=== PATIENT | female | born 1985 | race Caucasian/White ===

== ENCOUNTER 2018-12-19 21:46 | Emergency (ER) | payer MEDICAID, SELFPAY ==
[2018-12-19 21:47] VITALS: BP 131/75; PULSE 111; RESP 16; TEMP 36.4; O2SAT 98; BMI 26.4
[2018-12-19 21:55] VITALS: RESP 16
--- NOTE | 2018-12-19 22:21 | ED.VISSUMM ---
- ER Visit Summary Date of Service: 12/19/18 Chief Complaint: Abdominal pain, nausea, vomiting History of Present Illness: The patient is a 33 F who presents with abdominal pain, nausea, and vomiting is been getting worse over the past 3 days. Patient states she is unable to keep anything down. Patient states she has been having fevers up to 100.2 at home. Patient describes her pain as aching. Patient states her pain is over the upper abdomen. Patient denies any hematemesis or coffee-ground emesis. Patient denies any diarrhea, melena, or hematochezia. Physical Examination: Vital signs are stable except for mild tachycardia of 111. Patient is afebrile. Patient is in no acute distress. Oral mucosa is pink and moist. Neck is supple. Trachea is midline. There is no JVD noted. Heart was regular rate and rhythm. Lungs are clear and equal bilateral. Abdomen is soft. Bowel sounds are normal. There is diffuse tenderness. There is no rebound or guarding noted. Cranial nerves II through XII are intact. There are no focal motor or sensory deficits noted. Test Results: CBC, comprehensive metabolic profile, urinalysis, and serum hCG were obtained and were negative. Emergency Department Course and Treatment: Patient was given IV fluids and Zofran here. Patient was given a prescription for Zofran. Patient was instructed to start with small frequent fluids. Patient was instructed to advance her diet as tolerated. Patient was instructed to follow-up with her primary care physician in 5-7 days. Patient was instructed to take Tylenol or ibuprofen as needed for any fevers. Patient understood and was agreeable with the plan. All questions were answered. Disposition: Discharge home Impression: Nausea and vomiting This note was generated with [employer] dictation software. It may contain incorrect words, spelling, and punctuation that were not noted in review of the chart prior to signing ED Disposition - Plan for ED Patient: Disposition: Home or Assisted Living Diagnosis: Nausea and vomiting Instructions: ED Nausea Vomiting Prescriptions: Ondansetron [Zofran Odt] 4 mg PO Q8H PRN PRN #10 tab PRN Reason: Nausea Referrals: Care Physician,No Primary [Primary Care Provider] - [facility] [NON-STAFF] - 5-7 Days
[2018-12-19] MEDS: Ondansetron 4 MG/2 ML Vial IV (22:37)
[2018-12-19] MEDS: 0.9% Normal Saline 1,000 ML 1000 ML IV (22:37)
[2018-12-19] MEDS: Morphine 4 MG/ML Syringe IV (22:39)
[2018-12-19 22:53] LABS: Bacteria 0 SEEN /hpf (None Seen); Red Blood Cells-Urine 0 SEEN /hpf (0-5)
[2018-12-19 23:02] LABS: Absolute Lymphocyte Count 0.54 X10^3/ul (0.83-4.51); Absolute Neutrophil Count 7.3 X10^3/uL (2.0-7.7); Basophil# 0.02 X10^3/uL; Basophil% 0.2 % (0-1); Eosinophil# 0.19 X10^3/uL; Eosinophils% 2.2 % (0-5); Hematocrit 37.9 % (37-47); Hemoglobin 12.6 g/dl (12.0-15.0); Lymphocyte # 0.54 X10^3/ul (4.0); Lymphocyte % 6.2 % (19-41); Mean Corp Hgb Conc 33.2 g/gl (32-36); Mean Corpuscular Hgb 28.3 pg (27.0-32.0); Monocyte# 0.66 X10^3/uL; Monocyte% 7.6 % (0-10); Neutrophil # 7.27 X10^3/uL (2.7-7.7); Neutrophil % 83.3 % (47-70); Platelet Count 371 K/mm3 (150-450); RBC Distribution Width CV 13.9 % (11.6-14.6); RBC Distribution Width SD 42.9 fl (35.1-43.9); Red Blood Count 4.46 M/mm3 (4.2-5.4); White Blood Count 8.7 K/mm3 (4.4-11.0)
[2018-12-19 23:03] LABS: Color, Urine Yellow (Yellow); Glucose, Dipstick Normal (Normal); Ketone-Dipstick Negative (Negative); Leukocyte Esterase-Dipstick 100 /ul (Negative); Nitrite-Dipstick Negative (Negative); Occult Blood-Urine 10 /ul (Negative); Protein-Dipstick Negative (Negative); Urine Clarity Sl. Cloudy (Clear); Urine Urobilinogen Normal (Normal)
[2018-12-19 23:03] LABS: Differential Indicated SCAN CRITERIA MET; POSITIVE COUNT NO; POSITIVE DIFFERENTIAL YES; POSITIVE MORPHOLOGY NO
[2018-12-19 23:12] LABS: Internal QC Validated? YES +Cl - CLEAR BKGD; Pregnancy, Serum, hCG Quali. NEGATIVE Negative
[2018-12-19 23:18] LABS: Urine Bilirubin Dipstick 1 mg/dL (Negative)
[2018-12-19 23:18] LABS: ALB/GLOB Ratio 0.8 RATIO (0.9-2.4); AST(SGOT) 12 U/L (15-37); Alanine Aminotransfer ALT/SGPT 17 U/L (13-56); Albumin, Serum 3.4 g/dL (3.2-5.0); Alkaline Phosphatase 78 U/L (45-117); Anion Gap 6 (5-15); BUN 7 mg/dL (7-18); Calcium,Total 8.8 mg/dL (8.5-10.1); Chloride 104 mmol/L (98-107); EST Glomerular Filtration Rate 102 mL/min (>60); Est Glom Filt Rate - Afr Amer 123 mL/min (>60); Estimated Creatinine Clearance 107.01 ml/min; Globulin 4.1 g/dL (2.2-4.2); Glucose 93 mg/dL (74-106); Protein, Total 7.5 g/dL (6.4-8.2); Sodium Level 134 mmol/L (136-145)
[2018-12-19 23:19] LABS: White Blood Cells 5-10 SEEN /hpf (0-5)
[2018-12-19 23:20] LABS: Differential Comment SCANNED
[2018-12-19 23:20] LABS: Mucous, Urine 1+ /hpf (<or=2+); Squamous Epithelial Cells - UA 0-5 SEEN /hpf (5-10); Transitional Epithelial - Ur 0-5 SEEN /hpf (0-5)
[2018-12-19 23:54] VITALS: PULSE 90; RESP 16
== END 2018-12-19 23:54 | disposition home or self-care (01) ==
PROVIDERS: Emergency Provider Emergency Medicine
DX: R11.2 Nausea with vomiting, unspecified (principal); R10.11 Right upper quadrant pain; R10.12 Left upper quadrant pain; Z72.0 Tobacco use
CPT/HCPCS: 80053; 81001; 84703; 85025; 96361; 96374; 96375; 99283; J7030; J2405

== ENCOUNTER 2018-12-31 17:38 | Emergency (ER) | payer MEDICAID, SELFPAY ==
[2018-12-31 17:39] VITALS: BP 117/76; PULSE 105; RESP 14; TEMP 36.7; O2SAT 99; BMI 29.7
--- NOTE | 2018-12-31 18:23 | ED.DCSUM_ITS ---
History of Present Illness Chief Complaint: Back Informant: Patient, Significant Other Onset: Yesterday Context: Gradual Onset - after lots of walking Timing: Continuous Quality: aching Location: right low back. radiates down RLE to foot. Current Severity: Moderate Maximum Severity: Moderate Worsened by: walking Relieved by: rest Associated Symptoms: numbness down RLE to foot Narrative: Denies any bowel or bladder dysfunction, no saddle anesthesias. No recent injury, just lots of repetitive movements and walking. She is new to the area according to her significant other. She has had this discomfort chronically for over a year in her right low back down her right lower extremity, same symptoms that are currently worse for the last couple days. - Past Medical History (1) Sciatica, right side Status: Chronic Past Medical History - Allergies and Home Meds Allergies/Adverse Reactions: Allergies ibuprofen Allergy (Verified 12/31/18 17:43) Anaphylaxis NSAIDS (Non-Steroidal Anti-Inflamma Allergy (Verified 12/19/18 21:50) Anaphylaxis Penicillins [PCN] Allergy (Verified 12/19/18 21:50) Anaphylaxis Primary Care Physician: Care Physician,No Primary [Primary Care Provider] - Smoking Status: Current every day smoker Review of Systems General: Denies: Chills, Fever Gastrointestinal: Denies: Abdominal pain, Nausea, Vomiting, Diarrhea Genitourinary: Reports: - - Last normal menstrual cycle last month, chronically irregular. Denies: Dysuria, Hematuria, Frequency Musculoskeletal: Reports: Back pain, Extremity Pain. Denies: Neck pain Skin: Denies: Rash, Wounds Neurological: Reports: Parasthesia. Denies: Headache, Weakness Physical Exam Vital Signs/Narrative: Vital Signs Temp Pulse Resp BP Pulse Ox 12/31/18 17:39 98.0 F 105 H 14 117/76 99 Inital Vital Signs reviewed: Yes General: Well nourished, Well developed, No Acute Distress Head: Normocephalic, Atraumatic Eyes: Perrl, EOMI ENT: Moist mucous membranes, No rhinorrhea Neck: Supple, Nontender Respiratory: No distress Abdomen: Soft, Nontender, Nondistended, Normal bowel sounds Back: Normal Inspection. Negative for: Nontender - Tender from right sciatic notch all the way into right sacroiliac joint area. No crepitance, asymmetry, rash., CVA tenderness, Spinal tenderness Extremities: Nontender, No edema Skin: Normal color, No rash, No Trauma Neurological: Alert, Oriented x3, Cranial nerves II-XII grossly intact, Normal Strength, Normal Sensation, Normal DTR - Downgoing toes, no clonus bilaterally. Negative cross leg straight leg raise while lying. Positive ipsilateral right- sided straight leg raise. Psychological: Normal affect, Normal Mood Diagnostic/Tx/Re-eval - Medical Decision Making Patient states she is allergic to all NSAIDs. She is well-appearing does not have any symptoms of cauda equina syndrome. As I discussed with her, we do not treat chronic pain with narcotics. She is given an injection of Norflex and advised to follow-up so that she can have MRI at some point for this chronic pain that she has never been imaged for. ED Disposition - Plan for ED Patient: Disposition: Home or Assisted Living Diagnosis: Acute exacerbation of chronic low back pain, Sciatica, right side Instructions: ED Sciatica Referrals: Jaimie Mckeon [NON-STAFF] -
[2018-12-31] MEDS: Orphenadrine 60 MG/2 ML Ampul IM (18:45)
[2018-12-31 18:46] VITALS: BP 120/81; PULSE 73; RESP 15; O2SAT 98
== END 2018-12-31 18:47 | disposition home or self-care (01) ==
LOC: ED 18:30
PROVIDERS: Emergency Provider Emergency Medicine
DX: M54.41 Lumbago with sciatica, right side (principal); G89.29 Other chronic pain; F17.200 Nicotine dependence, unspecified, uncomplicated
CPT/HCPCS: 96372; 99282

== ENCOUNTER 2019-01-04 18:19 | Emergency (ER) | payer MEDICAID, SELFPAY ==
[2019-01-04 18:19] VITALS: BP 118/78; PULSE 77; RESP 16; TEMP 37.2; O2SAT 100; BMI 28.3
--- NOTE | 2019-01-04 18:39 | ED.DCSUM_ITS ---
- ER Visit Summary Date of Service: 01/04/19 Chief Complaint: Back pain History of Present Illness: The patient is a 33 F presenting with back pain. She states she has had pain in her right low back that radiates to her right leg for the past year. She was seen by [facility] yesterday. She was scheduled to start physical therapy on . She was told yesterday that if her pain worsened she should return to the ED. She states she woke up this morning with worsening pain. She currently is homeless and is sleeping on an air mattress. She denies bowel or bladder incontinence. Denies weakness. Denies fever. She states she felt like her right thigh was swollen. Denies chest pain or shortness of breath. Denies other complaints. Physical Examination: Vitals are stable. Patient is afebrile. Alert no acute distress. HEENT exam is unremarkable. Neck is supple. Lungs are clear and equal bilaterally. Heart is regular rate and rhythm. Abdomen is soft nontender nondistended. Back: Right paraspinal lumbar muscle tenderness. Straight leg raise + at 30 degrees on the right. Extremities are unremarkable. Normal distal pulses. No erythema or warmth. Skin is warm and dry. No focal neurologic deficit. Normal strength and sensation Remainder of exam is unremarkable. Emergency Department Course and Treatment: Patient was given Norflex IM. Venous Doppler right lower extremity shows no evidence of DVT. She is given a prescription for Flexeril. She is allergic to NSAIDs. She is advised to take Tylenol. She is advised to follow up with her primary care physician and physical therapy as scheduled. Advised to return to the ED for worsening complaints. Disposition: Discharged home Impression: Sciatica This note was generated with [employer] dictation software. It may contain incorrect words, spelling, and punctuation that were not noted in review of the chart prior to signing ED Disposition - Plan for ED Patient: Instructions: ED Sciatica Prescriptions: Cyclobenzaprine [Flexeril] 10 mg PO TID PRN #20 tablet PRN Reason: Muscle Spasm Referrals: Jaimie Mckeon [NON-STAFF] -
--- NOTE | 2019-01-04 18:41 | US_ITS ---
STUDY: VENOUS DOPPLER ULTRASOUND - RIGHT LOWER EXTREMITY REASON FOR EXAM: Female, 33 years old. Right hip swelling and pain that radiates down her leg. TECHNIQUE: Ultrasound evaluation of the deep vein system to include sims-scale imaging and compression was performed. Sims-scale imaging and Doppler sonographic evaluation, including duplex spectral analysis and qualitative color flow sonography, was performed. COMPARISON: None. FINDINGS: Common Femoral Vein: Normal compression, spontaneity and augmentation. Normal color Doppler. Common Femoral Vein/Greater Saphenous Junction: Normal compression. Femoral Proximal: Normal compression. Femoral Middle: Normal compression, spontaneity and augmentation. Normal color Doppler. Femoral Distal: Normal compression. Popliteal Vein: Normal compression, spontaneity and augmentation. Normal color Doppler. Posterior Tibial Vein: Normal compression. Peroneal Vein: Normal compression. There is no demonstrated deep venous thrombosis. US/Venous Duplex Imag/Limited/Uni IMPRESSION: No sonographic evidence for deep venous thrombosis of the right common femoral, superficial femoral or popliteal veins. Electronically Signed: Karen Amaya MD at 19:17 EDT , Service support ,
[2019-01-04] MEDS: Orphenadrine 60 MG/2 ML Ampul IM (19:09)
--- NOTE | 2019-01-04 19:10 | ED.DEP ---
ED Disposition - Plan for ED Patient: Instructions: ED Sciatica Prescriptions: Cyclobenzaprine [Flexeril] 10 mg PO TID PRN #20 tablet PRN Reason: Muscle Spasm Referrals: Jaimie Mckeon [NON-STAFF] -
== END 2019-01-04 19:25 | disposition home or self-care (01) ==
LOC: ED 18:43
PROVIDERS: Emergency Provider Emergency Medicine
DX: M54.41 Lumbago with sciatica, right side (principal); Z72.0 Tobacco use
CPT/HCPCS: 93971; 96372; 99282

== ENCOUNTER 2019-03-24 21:56 | Emergency (ER) | payer SELFPAY ==
[2019-03-24 21:56] VITALS: BP 123/81; PULSE 107; RESP 16; TEMP 37; O2SAT 97; BMI 24.5
--- NOTE | 2019-03-24 22:53 | ED.VIS.EYE ---
History of Present Illness Chief Complaint: Eye Problem Informant: Patient Location: Right Eye Onset: Today Context: Gradual Onset Timing: Continuous Current Severity: Moderate Maximum Severity: Moderate Worsened by: nothing Relieved by: nothing Associated Symptoms - Eyes: Burning, Drainage, Eyelid swelling, Pain, Redness Visual Changes: right: Blurred vision - better when wipes d/c out of eye History of injury: No Visual correction: Glasses - but doesn't have them Narrative: No recent upper respiratory symptoms. Normal left eye. No obvious etiology of this, not exposed to anyone with pinkeye that she knows of. No foreign body sensation. She had a minor headache earlier. Past Medical History - Allergies and Home Meds Allergies/Adverse Reactions: Allergies ibuprofen Allergy (Verified 01/04/19 18:21) Anaphylaxis NSAIDS (Non-Steroidal Anti-Inflamma Allergy (Verified 01/04/19 18:21) Anaphylaxis Penicillins [PCN] Allergy (Verified 01/04/19 18:21) Anaphylaxis Primary Care Physician: Care Physician,No Primary [Primary Care Provider] - Lives: Spouse/ Significant Other Smoking Status: Current every day smoker Review of Systems General: Denies: Chills, Fever Eyes: Reports: Blurred vision - right - When discharge present. Redness, pain. See HPI.. Denies: Diplopia ENT: Denies: Bilateral ear pain, Rhinorrhea, Sore throat Respiratory: Denies: Dyspnea, Cough Gastrointestinal: Denies: Nausea, Vomiting Physical Exam Eyelid: No foreign body, - - Mild erythema and swelling to eyelids, no significant external tenderness. Right Conjunctiva/Sclera: No foreign body, Diffuse focal injection - Both bulbar and palpebral, no chemosis. Small amount of purulent discharge present at medial canthus. Left Conjunctiva/Sclera: Normal inspection Right Cornea: Normal inspection - Grossly, No foreign body Left Cornea: Normal inspection - Grossly Extraocular Motion: Normal exam, No pain, No palsy Vital Signs/Narrative: Vital Signs Temp Pulse Resp BP Pulse Ox 03/24/19 21:56 98.6 F 107 H 16 123/81 H 97 General: Well nourished, Well developed Head: Normocephalic, Atraumatic Skin: Normal color, No rash, No Trauma Neurological: Alert, Oriented x3, Cranial nerves II-XII grossly intact, Normal Strength, Normal Sensation Psychological: Normal affect, Normal Mood Diagnostic/Tx/Re-eval - Medical Decision Making Consistent with conjunctivitis. She prefers drops rather than ointments, understanding that we do not have the drops to give her in the emergency department but we do have ointment. She still would rather have a prescription and fill it in the morning. Advised to follow-up or return to the ER if not improving after couple days or if she has any other significant new symptoms. She is comfortable with that plan. ED Disposition - Plan for ED Patient: Disposition: Home or Assisted Living Diagnosis: Conjunctivitis, right eye Instructions: CONJUNCTIVITIS, Viral, CONJUNCTIVITIS, Bacterial Prescriptions: Sulfacetamide Sodium [Sulf-10] 2 drp OPHTHALMIC (EYE) Q2H 7 Days #1 opth.btl Prescription Printed Referrals: Gamal cMkenna MD [STAFF PHYSICIAN] - 3-5 Days if not improving
[2019-03-24 23:10] VITALS: BP 126/80; PULSE 98; RESP 18; O2SAT 96
== END 2019-03-24 23:22 | disposition home or self-care (01) ==
PROVIDERS: Emergency Provider Emergency Medicine
DX: H10.9 Unspecified conjunctivitis (principal); F17.200 Nicotine dependence, unspecified, uncomplicated
CPT/HCPCS: 99283

== ENCOUNTER 2019-04-01 13:20 | Emergency (ER) | payer SELFPAY ==
[2019-04-01 13:20] VITALS: BP 120/82; PULSE 106; RESP 18; TEMP 36.8; O2SAT 98; BMI 24.5
--- NOTE | 2019-04-01 15:03 | ED.RN ---
PER DR MELENDEZ, OK TO CANCEL SEPSIS SCREENING
--- NOTE | 2019-04-01 15:06 | ED.DCSUM_ITS ---
- ER Visit Summary Date of Service: 04/01/19 Chief Complaint: Eye redness and swelling, left greater than right History of Present Illness: The patient is a 34 F who has the above symptoms. She states is been ongoing for 2 days. She was here last week with symptoms in the right eye and prefer drops rather than ointment so she was discharged with a prescription but it sounds like she did not pick that up. She now has a purulent drainage coming out of the left eye. It is burning. She has blurry vision on that left eye due to the drainage. No history of any injury. She wears no corrective lenses. She has been trying [id number] eyedrops that do not help and she states it just branch when she puts him in the eye. Physical Examination: Bilateral eye exam reveals diffuse injection on the right. The left eye is also injected but also has a purulent drainage coming out of it. Her extraocular motions are intact and normal. Her pupils are equal. There are no other eye abnormality seen Test Results: None performed Emergency Department Course and Treatment: Patient appears to have conjunctivitis, left greater than right. She does have a purulent drainage coming out of the left eye. I will put her on bacitracin ophthalmic. She will follow-up with ophthalmology Treatment Plan: [] Disposition: Discharge Impression: Bilateral conjunctivitis, left greater than right This note was generated with [employer] dictation software. It may contain incorrect words, spelling, and punctuation that were not noted in review of the chart prior to signing ED Disposition - Plan for ED Patient: Referrals: Care Physician,No Primary [Primary Care Provider] -
--- NOTE | 2019-04-01 15:07 | ED.DEP ---
ED Disposition - Plan for ED Patient: Disposition: Home or Assisted Living Instructions: CONJUNCTIVITIS, Bacterial Referrals: Care Physician,No Primary [Primary Care Provider] - Andrae Arroyo MD [STAFF PHYSICIAN] -
[2019-04-01 15:14] VITALS: PULSE 81; RESP 16; O2SAT 100
--- NOTE | 2019-04-01 15:15 | ED.RN ---
THIS NURSE REVIEWED D/C INSTRUCTIONS WITH PT. PT VERBALIZED UNDERSTANDING OF INSTRUCTIONS. PT DENIES FURTHER NEEDS OR QUESTIONS AT THIS TIME. PT AMBULATES FROM ROOM ON OWN WITHOUT ASSISTANCE FROM STAFF
== END 2019-04-01 15:15 | disposition home or self-care (01) ==
LOC: ED 15:08
PROVIDERS: Emergency Provider Emergency Medicine
DX: H10.9 Unspecified conjunctivitis (principal); Z72.0 Tobacco use
CPT/HCPCS: 99283

== ENCOUNTER 2019-04-08 13:04 | Emergency (ER) | payer SELFPAY ==
[2019-04-08 13:08] VITALS: BP 135/80; PULSE 93; RESP 16; TEMP 36.6; O2SAT 98; BMI 25.9
[2019-04-08 13:52] LABS: Internal QC Validated? YES +Cl - CLEAR BKGD
[2019-04-08 13:58] LABS: Pregnancy, Serum, hCG Quali. NEGATIVE Negative
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
--- NOTE | 2019-04-08 14:19 | ED.DEP ---
ED Disposition - Plan for ED Patient: Instructions: CONTUSION, Soft Tissue Referrals: Care Physician,No Primary [Primary Care Provider] - Jj Ponce MD [STAFF PHYSICIAN] - 3-5 Days
[2019-04-08 14:23] VITALS: RESP 16
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
== END 2019-04-08 14:28 | disposition home or self-care (01) ==
LOC: ED 13:30
PROVIDERS: Emergency Provider Emergency Medicine
DX: S30.1XXA Contusion of abdominal wall, initial encounter (principal); Y04.2XXA Assault by strike against or bumped into by another person, initial encounter; Y93.89 Activity, other specified; Y92.9 Unspecified place or not applicable; Z59.0 Homelessness; Z72.0 Tobacco use
CPT/HCPCS: 84703; 99283

== ENCOUNTER 2019-04-19 23:54 | Emergency (ER) | payer SELFPAY ==
[2019-04-19 23:54] VITALS: BP 144/103; PULSE 92; RESP 18; TEMP 37.2; O2SAT 100; BMI 25.4
--- NOTE | 2019-04-19 23:57 | EKG12_ITS ---
Test Reason : CP Blood Pressure : / mmHG Vent. Rate : 081 BPM Atrial Rate : 081 BPM P-R Int : 142 ms QRS Dur : 092 ms QT Int : 340 ms P-R-T Axes : 138 147 144 degrees QTc Int : 394 ms Suspect arm lead reversal, interpretation assumes no reversal Normal sinus rhythm Left posterior fascicular block Cannot rule out Inferior infarct , age undetermined Abnormal ECG Confirmed by CHRISTIANO ANGEL ([id number]), city editor ISABEL SCHMITT ([id number]) on 04/21/2019 2:26:27 PM Referred By: NORA Confirmed By:CHRISTIANO ANGEL
--- NOTE | 2019-04-19 23:57 | ED.VISSUMM ---
- ER Visit Summary Date of Service: 04/19/19 Chief Complaint: Chest pain History of Present Illness: The patient is a 34 F who presents with chest pain. She has had this pain for 4 days. It is sharp and stabbing in the substernal area and it radiates leftward. Nothing makes it better or worse. She has mild shortness of breath with it. She states that her anxiety has been bad recently. She has taken nothing for this at home. She has a history of hypertension but no other cardiac issues. She is a smoker and has no other cardiac risk factors. Physical Examination: Vital signs reviewed. HEENT exam unremarkable. Heart is regular rate and rhythm without murmurs. Lungs are clear to auscultation. Abdomen is soft and nontender. Extremities reveal no edema. Peripheral pulses are equal. Skin exam normal. Neurologic exam normal. Test Results: EKG, chest x-ray and troponin normal Emergency Department Course and Treatment: Patient was given Tylenol. This is likely musculoskeletal. I do not feel that cardiac. She will continue Tylenol use ice at home. She will follow-up with her PCP Treatment Plan: [] Disposition: Discharge Impression: Musculoskeletal chest pain This note was generated with [employer] dictation software. It may contain incorrect words, spelling, and punctuation that were not noted in review of the chart prior to signing ED Disposition - Plan for ED Patient: Referrals: Care Physician,No Primary [Primary Care Provider] -
--- NOTE | 2019-04-20 | RAD_ITS ---
STUDY: X-RAY CHEST REASON FOR EXAM: Female, 34 years old. Chest pain for 4 days TECHNIQUE: PA and lateral COMPARISON: None. FINDINGS: The lungs are clear and expanded. There is no demonstrated pleural abnormality. Normal size heart. Normal mediastinum and sonido. Normal visualized pulmonary arteries. Normal visualized aortic arch and descending thoracic aorta. Normal visualized thoracic spine. Normal visualized ribs, clavicles, and shoulders. There is no demonstrated abnormality of the visualized soft tissue structures of the upper abdomen. RAD/Chest PA and Lateral IMPRESSION: Negative x-ray examination of the chest. Electronically Signed: Johan Petty, at 0:21 EDT Tel , Service support ,
[2019-04-20] MEDS: Acetaminophen 325 MG Tablet 650 MG PO (00:23)
--- NOTE | 2019-04-20 00:47 | ED.DEP ---
ED Disposition - Plan for ED Patient: Disposition: Home or Assisted Living Instructions: CHEST PAIN, NonCardiac Referrals: Care Physician,No Primary [Primary Care Provider] -
[2019-04-20 00:51] VITALS: BP 130/88; PULSE 87; RESP 16; O2SAT 97
== END 2019-04-20 00:52 | disposition home or self-care (01) ==
PROVIDERS: Emergency Provider Emergency Medicine
DX: R07.89 Other chest pain (principal); F17.200 Nicotine dependence, unspecified, uncomplicated
CPT/HCPCS: 36415; 71046; 84484; 93005; 99283

== ENCOUNTER 2019-05-08 20:21 | Emergency (ER) | payer SELFPAY ==
[2019-05-08 20:21] VITALS: BP 119/87; PULSE 86; RESP 15; TEMP 36.3; O2SAT 97; BMI 23.3
--- NOTE | 2019-05-08 21:04 | CT_ITS ---
HISTORY: Right sided abdominal pain COMPARISON: None. TECHNIQUE: Helical CT axial images from the lung bases to the pubic symphysis without IV contrast. No oral contrast was administered. Multiplanar reconstruction. A radiation dose optimization technique was used for this scan. # of images incl. paperwork: [id number] FINDINGS: LUNG BASES: No basilar consolidation or effusions. LIVER: Normal in size and attenuation. No focal masses. HEPATOBILIARY: Contracted gallbladder. No intra- or extrahepatic ductal dilatation. SPLEEN: Normal size. PANCREAS: Normal size and contour. ADRENAL GLANDS: Normal size. No adrenal masses. KIDNEYS: Bilateral kidneys are normal in size without obstructing calculi or hydronephrosis. No nephrolithiasis. No significant cysts are present. BOWEL AND MESENTERY: Mild gastric distention with food and fluid residua. No small or large bowel dilatation.No colonic diverticulosis. Normal appendix. No abnormal mesenteric lymphadenopathy. No free fluid or pneumoperitoneum. RETROPERITONEUM:Normal caliber abdominal aorta without aneurysm. No abnormal retroperitoneal lymphadenopathy. PELVIS:Urinary bladder is unremarkable.Uterus and adnexal structures are unremarkable. ABDOMINAL WALL: The abdominal wall is intact. BONES: No suspicious osseous lytic or blastic lesions seen. CT/Abdomen/Pelvis without Cont IMPRESSION: 1. No acute intra-abdominal or pelvic disease. Normal appendix. 2. Mild gastric distention with food and fluid residua. Individualized dose optimization techniques were used for this CT. at 2242 Reported and signed by: Shashank Deutsch MD Electronically Signed: Shashank Deutsch MD at 22:41 EDT Tel , Service support ,
[2019-05-08] MEDS: Ketorolac 15 MG/ML Vial IV (21:15)
[2019-05-08] MEDS: 0.9% Normal Saline 1,000 ML 150 ML IV (21:15)
[2019-05-08] MEDS: Ondansetron 4 MG/2 ML Vial IV (21:15)
[2019-05-08 21:25] LABS: Bacteria 0 SEEN /hpf (None Seen)
[2019-05-08 21:26] LABS: Absolute Lymphocyte Count 1.88 X10^3/uL (0.83-4.51); Absolute Neutrophil Count 4.3 X10^3/uL (2.0-7.7); Basophil# 0.11 X10^3/uL; Basophil% 1.5 % (0-1); Eosinophil# 0.55 X10^3/uL; Eosinophils% 7.3 % (0-5); Hematocrit 39.1 % (37-47); Hemoglobin 12.7 g/dL (12.0-15.0); Lymphocyte # 1.88 X10^3/ul (4.0); Lymphocyte % 24.9 % (19-41); Mean Corp Hgb Conc 32.5 g/dL (32-36); Mean Corpuscular Hgb 27.8 pg (27.0-32.0); Mean Corpuscular Volume 85.6 fL (81-99); Monocyte# 0.68 X10^3/uL; NRBC Flagged by Analyzer 0 % (0-5); Neutrophil # 4.28 X10^3/uL (2.7-7.7); Neutrophil % 56.5 % (47-70); Platelet Count 403 K/mm3 (150-450); RBC Distribution Width CV 13.5 % (11.6-14.6); RBC Distribution Width SD 42.1 fl (35.1-43.9); Red Blood Count 4.57 M/mm3 (4.2-5.4); White Blood Count 7.6 K/mm3 (4.4-11.0)
[2019-05-08 21:27] LABS: Color, Urine Yellow (Yellow); Glucose, Dipstick Normal (Normal); Ketone-Dipstick 5 mg/dl (Negative); Leukocyte Esterase-Dipstick 25 /ul (Negative); Nitrite-Dipstick Negative (Negative); Occult Blood-Urine 10 /ul (Negative); Protein-Dipstick Negative (Negative); Specific Gravity, Urine 1.015 (1.002-1.030); Urine Bilirubin Dipstick Negative (Negative); Urine Clarity Clear (Clear); Urine Urobilinogen Normal (Normal)
[2019-05-08 21:30] LABS: Internal QC Validated? YES +Cl - CLEAR BKGD; Pregnancy, Urine Negative Negative
[2019-05-08 21:36] LABS: Mucous, Urine 1+ /hpf (<or=2+); Red Blood Cells-Urine 0-5 SEEN /hpf (0-5); Squamous Epithelial Cells - UA 0-5 SEEN /hpf (5-10); White Blood Cells 0-5 SEEN /hpf (0-5)
[2019-05-08 21:45] LABS: AST(SGOT) 14 U/L (15-37); Alanine Aminotransfer ALT/SGPT 18 U/L (13-56); Albumin, Serum 3.3 g/dL (3.2-5.0); Alkaline Phosphatase 94 U/L (45-117); Anion Gap 4 (5-15); BUN 11 mg/dL (7-18); BUN/Creat Ratio 14.1 RATIO (10-20); Bilirubin, Direct 0.06 mg/dL (0.00-0.30); Calcium,Total 8.8 mg/dL (8.5-10.1); Chloride 108 mmol/L (98-107); Creatinine, Serum 0.78 mg/dL (0.55-1.02); EST Glomerular Filtration Rate 90 mL/min (>60); Est Glom Filt Rate - Afr Amer 109 mL/min (>60); Globulin 4.4 g/dL (2.2-4.2); Glucose 103 mg/dL (74-106); Lipase 107 U/L (73-393); Potassium 3.9 mmol/L (3.5-5.1); Protein, Total 7.7 g/dL (6.4-8.2); Sodium Level 142 mmol/L (136-145)
[2019-05-08 22:22] VITALS: BP 116/78; PULSE 87; RESP 19; O2SAT 99
[2019-05-08] MEDS: Acetaminophen 500 MG Tablet 1000 MG PO (22:38)
--- NOTE | 2019-05-08 22:51 | ED.DCSUM_ITS ---
History of Present Illness Chief Complaint: Abd Pain Informant: Patient Onset: Today Context: Gradual Onset Timing: Waxes and wanes Current Severity: Moderate Maximum Severity: Moderate Narrative: Patient presents with right-sided abdominal pain all day today. She points just to the right of the umbilicus. She reports nausea and states she threw up in her mouth 3 times. She reports no bowel movement. No urinary symptoms. No fever or chills. No prior abdominal surgeries. Last menstrual cycle was May 03. - Past Medical History (1) Bipolar 1 disorder Status: Chronic (2) Hypertension Status: Chronic (3) Asthma Status: Chronic (4) GERD (gastroesophageal reflux disease) Status: Chronic Past Medical History - Allergies and Home Meds Allergies/Adverse Reactions: Allergies ibuprofen Allergy (Verified 05/08/19 20:25) Anaphylaxis NSAIDS (Non-Steroidal Anti-Inflamma Allergy (Verified 05/08/19 20:25) Anaphylaxis Penicillins [PCN] Allergy (Verified 05/08/19 20:25) Anaphylaxis adhesive tape Adverse Reaction (Verified 05/08/19 20:25) Rash Primary Care Physician: Care Physician,No Primary [Primary Care Provider] - Prior records reviewed: Yes Past Medical History: - - Reviewed Smoking Status: Current every day smoker Review of Systems General: Reports: Fever, Subjective. Denies: Chills Eyes: Denies: Visual changes - bilaterally Cardiovascular: Denies: Chest pain Respiratory: Denies: Dyspnea Gastrointestinal: Reports: Abdominal pain, Nausea, Vomiting. Denies: Diarrhea, Constipation Genitourinary: Denies: Dysuria Musculoskeletal: Denies: Back pain Skin: Denies: Rash Neurological: Denies: Headache Psych: Denies: Depression Endocrine: Denies: Polyuria, Polydipsia Hematologic: Denies: Easy bruising Allergy: Denies: Uticaria Physical Exam Vital Signs/Narrative: Vital Signs Temp Pulse Resp BP Pulse Ox 05/08/19 22:22 87 19 H 116/78 99 05/08/19 20:21 97.4 F L 86 15 119/87 H 97 Inital Vital Signs reviewed: Yes General: Well nourished, Well developed Head: Normocephalic Eyes: Perrl ENT: Moist mucous membranes Neck: Supple Cardiovascular: Regular rate, Regular rhythm Respiratory: No distress, CTA bilaterally Abdomen: Soft, Tender - Mild right sided mid abdominal tenderness., Hypoactive bowel sounds. Negative for: Guarding, Rebound tenderness Extremities: Nontender Skin: Normal color Neurological: Alert Psychological: Normal affect Diagnostic/Tx/Re-eval Impressions Abdomen/Pelvis CT 05/08/19 21:04 IMPRESSION: 1. No acute intra-abdominal or pelvic disease. Normal appendix. 2. Mild gastric distention with food and fluid residua. Individualized dose optimization techniques were used for this CT. at 2242 Reported and signed by: Shashank Deutsch MD Electronically Signed: Shashank Deutsch MD at 22:41 EDT Tel , Service support , 05/08/19 21:04 Abdomen/Pelvis without Cont [CT] Stat Laboratory Results 05/08/19 05/08/19 05/08/19 21:10 21:10 21:15 WBC 7.6 RBC 4.57 Hgb 12.7 Hct 39.1 MCV 85.6 MCH 27.8 MCHC 32.5 RDW Std Deviation 42.1 RDW Coeff of Alley 13.5 Plt Count 403 MPV 8.0 Immature Gran % (Auto) 0.800 Neut % (Auto) 56.5 Lymph % (Auto) 24.9 [place] % (Auto) 9.0 Eos % (Auto) 7.3 H Baso % (Auto) 1.5 H Absolute Neuts (auto) 4.3 Absolute Lymphs (auto) 1.88 Nucleated RBC % 0 Sodium 142 Potassium 3.9 Chloride 108 H Carbon Dioxide 30.0 Anion Gap 4 L BUN 11 Creatinine 0.78 Estim Creat Clear Calc 73.00 Est GFR (MDRD) Af Amer 109 Est GFR (MDRD) Non-Af 90 BUN/Creatinine Ratio 14.1 Glucose 103 Calcium 8.8 Total Bilirubin 0.10 L Direct Bilirubin 0.06 AST 14 L ALT 18 Alkaline Phosphatase 94 Total Protein 7.7 Albumin 3.3 Globulin 4.4 H Lipase 107 Urine Color Urine Clarity Urine pH Ur Specific [place] Urine Protein Urine Glucose (UA) Urine Ketones Urine Occult Blood Urine Nitrite Urine Bilirubin Urine Urobilinogen Ur Leukocyte Esterase Urine RBC Urine WBC Ur Squamous Epith Cells Urine Bacteria Urine Mucus Urine Test Negative 05/08/19 21:15 WBC RBC Hgb Hct MCV MCH MCHC RDW Std Deviation RDW Coeff of Alley Plt Count MPV Immature Gran % (Auto) Neut % (Auto) Lymph % (Auto) [place] % (Auto) Eos % (Auto) Baso % (Auto) Absolute Neuts (auto) Absolute Lymphs (auto) Nucleated RBC % Sodium Potassium Chloride Carbon Dioxide Anion Gap BUN Creatinine Estim Creat Clear Calc Est GFR (MDRD) Af Amer Est GFR (MDRD) Non-Af BUN/Creatinine Ratio Glucose Calcium Total Bilirubin Direct Bilirubin AST ALT Alkaline Phosphatase Total Protein Albumin Globulin Lipase Urine Color Yellow Urine Clarity Clear Urine pH 7.0 Ur Specific [place] 1.015 Urine Protein Negative Urine Glucose (UA) Normal Urine Ketones 5 H Urine Occult Blood 10 H Urine Nitrite Negative Urine Bilirubin Negative Urine Urobilinogen Normal Ur Leukocyte Esterase 25 H Urine RBC 0-5 SEEN Urine WBC 0-5 SEEN Ur Squamous Epith Cells 0-5 SEEN Urine Bacteria 0 SEEN Urine Mucus 1+ Urine Test - Medical Decision Making Patient was given Toradol and Zofran. She lists an allergy to NSAIDs, but states she cannot take them by mouth because of her gastritis and ulcers. Due to continued pain she is given a dose of Tylenol. Labs and CT images are reviewed with her. She does have quite a bit of residual in her stomach as well as in her ascending colon. I will write her for MiraLAX. ED Disposition - Plan for ED Patient: Disposition: Home or Assisted Living Diagnosis: Abdominal pain Instructions: CONSTIPATION (Adult), ABDOMINAL PAIN, Unknown Cause, (Female) Prescriptions: Polyethylene Glycol 3350 [Miralax] 17 gm PO DAILY #30 packet Referrals: Angel Perkins MD [STAFF PHYSICIAN] - 1-2 Weeks
[2019-05-08 23:05] VITALS: BP 112/60; PULSE 83; RESP 18; O2SAT 99
== END 2019-05-08 23:06 | disposition home or self-care (01) ==
PROVIDERS: Emergency Provider Emergency Medicine
DX: R10.9 Unspecified abdominal pain (principal); R11.2 Nausea with vomiting, unspecified; K59.00 Constipation, unspecified; F31.9 Bipolar disorder, unspecified; J45.909 Unspecified asthma, uncomplicated; F17.200 Nicotine dependence, unspecified, uncomplicated
CPT/HCPCS: 74176; 80048; 80076; 81001; 81025; 83690; 85025; 96361; 96374; 96375; 99283; J7030; J2405

== ENCOUNTER 2019-05-28 12:39 | Emergency (ER) | payer SELFPAY ==
[2019-05-28 12:39] VITALS: BP 131/75; PULSE 73; RESP 16; TEMP 36.2; BMI 25.6
--- NOTE | 2019-05-28 13:10 | CT_ITS ---
STUDY: CT BRAIN WITHOUT CONTRAST REASON FOR EXAM: Female, 34 years old. Injury. Pain. RADIATION DOSAGE (If Supplied By Facility): CTDIvol = ( 44.99 ) mGy, DLP = ( 694.87 ) mGycm TECHNIQUE: Transaxial CT imaging of the brain was performed without administration of intravenous contrast material. Individualized dose optimization techniques were used for this CT. COMPARISON: None. FINDINGS: There is no acute bleed or infarct. There are normal white matter tracts. The ventricles are normal in configuration. There is no hydrocephalus. There are bilateral maxillary sinus polyps The visualized paranasal sinuses are otherwise clear. The mastoid air cells are well aerated. There is no skull fracture. CT/Brain/Head without Contrast IMPRESSION: No acute intracranial abnormality. Bilateral maxillary sinus polyps. Electronically Signed: Omar Hall, at 14:04 EDT Tel , Service support ,
--- NOTE | 2019-05-28 13:10 | CT_ITS ---
STUDY: CT CERVICAL SPINE WITHOUT CONTRAST REASON FOR EXAM: Female, 34 years old. Injury RADIATION DOSAGE (If Supplied By Facility): CTDIvol = ( 18.18 ) mGy, DLP = ( 298.46 ) mGycm TECHNIQUE: High resolution transaxial imaging was performed without contrast material. Sagittal and coronal images were reconstructed. Individualized dose optimization techniques were used for this CT. COMPARISON: None available. FINDINGS: There is no evidence of fracture or dislocation in the cervical spine. The dens is intact. Alignment is normal. The vertebral body heights and disc spaces are well-maintained. There are no significant degenerative changes. The visualized paraspinal soft tissues are within normal limits. CT/Spine Cervical without Contras IMPRESSION: No fracture or dislocation in the cervical spine. No significant degenerative changes. Electronically Signed: Omar Hall, at 14:08 EDT Tel , Service support ,
--- NOTE | 2019-05-28 13:11 | ED.DCSUM_ITS ---
- ER Visit Summary Date of Service: 05/28/19 Chief Complaint: Neck pain and headache History of Present Illness: The patient is a 34 F who presents with neck pain and a headache that is been getting worse over the past 2 weeks. Patient states she was hit on the left side of her neck with a skateboard approximately 2 weeks ago. Patient states the pain is been persistent. Patient describes the pain as throbbing. Patient states nothing makes the pain better or worse. Patient states the pain is localized to the left side of her neck. Patient denies any paresthesias or weakness. Patient states the neck pain is giving her a migraine headache. Patient denies any nausea or vomiting. Patient admits to some intermittent chest pain and shortness of breath. Physical Examination: Vital signs are stable. Patient is afebrile. Patient is in no acute distress. Oral mucosa is pink and moist. Neck is supple. Trachea is midline. There is no JVD noted. There is tenderness over the left cervical paraspinal muscles. There is no lymphadenopathy noted. There is no midline ce rvical spine tenderness. There is tenderness over the transverse processes on the left. Range of motion was slightly limited in left rotation and left side bending secondary to pain. Cranial nerves II through XII are intact. Strength is 5/5 bilateral knee upper and lower extremities. There are no sensory deficits noted. Heart was regular rate and rhythm. Lungs are clear and equal bilaterally. Test Results: CT scan of the brain and cervical spine were obtained. There is no acute intracranial abnormality. There is no acute cervical spine fracture. Emergency Department Course and Treatment: Patient was advised of her imaging results. Patient was instructed to take Tylenol as needed for pain. Patient was instructed use ice to the area. Patient was given an ice pack here. Patient was instructed to follow-up with her primary care physician in 5 to 7 days. Patient understood and was agreeable with the plan. All questions were answered. Disposition: Discharge home Impression: 1. Acute cervical strain 2. Closed head injury This note was generated with [employer] dictation software. It may contain incorrect words, spelling, and punctuation that were not noted in review of the chart prior to signing ED Disposition - Plan for ED Patient: Disposition: Home or Assisted Living Diagnosis: Acute cervical myofascial strain, Closed head injury Instructions: Neck Sprain/Strain, HEAD INJURY, No Wake-Up (Adult) Referrals: Care Physician,No Primary [Primary Care Provider] - 5-7 Days
== END 2019-05-28 15:20 | disposition home or self-care (01) ==
PROVIDERS: Emergency Provider Emergency Medicine
DX: S16.1XXA Strain of muscle, fascia and tendon at neck level, initial encounter (principal); S09.90XA Unspecified injury of head, initial encounter; W22.8XXA Striking against or struck by other objects, initial encounter; Z72.0 Tobacco use
CPT/HCPCS: 70450; 72125; 99282

== ENCOUNTER 2019-06-05 23:52 | Emergency (ER) | payer SELFPAY ==
[2019-06-05 23:53] VITALS: BP 128/84; PULSE 68; RESP 16; TEMP 36.8; BMI 25.5
--- NOTE | 2019-06-05 23:57 | RAD_ITS ---
STUDY: X-RAY - LEFT FOOT CLINICAL: Female, 34 years old. Pain. TECHNIQUE: 3 view(s) of the foot. COMPARISON: None. FINDINGS: No visible fracture. No osseous destruction. Alignment anatomic. No significant degenerative changes. Soft tissues unremarkable. RAD/Foot min 3 Views IMPRESSION: No acute osseous abnormality. Electronically Signed: Maximo Leyva, at 0:33 EDT Tel , Service support ,
--- NOTE | 2019-06-05 23:58 | ED.VIS.GEN ---
History of Present Illness Chief Complaint: Lower Extremity Injury Informant: Patient Onset: Yesterday Context: Sudden Onset Timing: Continuous Current Severity: Moderate Maximum Severity: Moderate Narrative: The patient presents to the emergency department with left foot injury. Patient states that last night, she was at a physical. Someone stepped on her foot. Since then, she had swelling and pain. States hard to bear weight. She denies other injury. She is otherwise been in her normal state of health. She denies any history of fracture. She has not taken anything for the pain. Prior similar symptoms: No Recent Illness/Hospitalization: No Past Medical History - Allergies and Home Meds Allergies/Adverse Reactions: Allergies ibuprofen Allergy (Verified 06/05/19 23:53) Anaphylaxis NSAIDS (Non-Steroidal Anti-Inflamma Allergy (Verified 06/05/19 23:53) Anaphylaxis Penicillins [PCN] Allergy (Verified 06/05/19 23:53) Anaphylaxis adhesive tape Adverse Reaction (Verified 06/05/19 23:53) Rash Primary Care Physician: Care Physician,No Primary [Primary Care Provider] - Prior records reviewed: Yes Past Medical History: - - Bipolar, schizoaffective Surgical History: no surgical history Smoking Status: Current every day smoker Review of Systems General: Denies: Chills, Fever, Sweats Eyes: Denies: Visual changes - bilaterally, Diplopia ENT: Denies: Rhinorrhea, Sore throat Cardiovascular: Denies: Chest pain, Palpitations Respiratory: Denies: Dyspnea, Cough, Dyspnea on exertion Gastrointestinal: Denies: Abdominal pain, Nausea, Vomiting, Diarrhea, Melena, Hematochezia Genitourinary: Denies: Dysuria, Hematuria, Frequency Musculoskeletal: Denies: Back pain, Extremity Pain Skin: Denies: Rash, Wounds Neurological: Denies: Headache, Weakness, Numbness Physical Exam Vital Signs/Narrative: Vital Signs Temp Pulse Resp BP 06/05/19 23:53 98.3 F 68 16 128/84 H Inital Vital Signs reviewed: Yes General: Well nourished, Well developed, No Acute Distress Head: Normocephalic, Atraumatic Eyes: Perrl, EOMI ENT: Moist mucous membranes, No rhinorrhea Neck: Supple, Nontender Cardiovascular: Regular rate, Regular rhythm, No murmurs Respiratory: No distress, CTA bilaterally, Chest nontender Abdomen: Soft, Nontender, Nondistended, Normal bowel sounds Back: Nontender, Normal Inspection Extremities: No edema, Tenderness - Tenderness on the dorsum of the left foot. Normal pulses. Compartments soft. No pain at the ankle. Skin is intact. Skin: Normal color, No rash Neurological: Alert, Oriented x3, Cranial nerves II-XII grossly intact, Normal Strength, Normal Sensation Psychological: Normal affect, Normal Mood Diagnostic/Tx/Re-eval - Medical Decision Making The patient has soft compartments. She has normal pulses. X-rays were obtained and were reviewed by both myself and the radiologist. There is no evidence of acute fracture or dislocation. Her Lisfranc joint is intact. My suspicion is that this is secondary to contusion versus sprain. Patient is placed in an Yusuf wrap. She will be given crutches. She will continue Tylenol and ice. She will be discharged home. Impression Left foot sprain ED Disposition - Plan for ED Patient: Instructions: CONTUSION, Foot Referrals: Care Physician,No Primary [Primary Care Provider] -
[2019-06-06] MEDS: HYDROcodone Bitartrate/Apap 5/325 Tablet PO (00:03)
[2019-06-06 00:41] VITALS: RESP 16
== END 2019-06-06 00:41 | disposition home or self-care (01) ==
LOC: ED 06-06 00:13
PROVIDERS: Emergency Provider Emergency Medicine
DX: S93.602A Unspecified sprain of left foot, initial encounter (principal); W50.0XXA Accidental hit or strike by another person, initial encounter; Y93.89 Activity, other specified; F17.200 Nicotine dependence, unspecified, uncomplicated
CPT/HCPCS: 73630; 99284

== ENCOUNTER 2019-07-06 13:17 | Emergency (ER) | payer MEDICAID, SELFPAY ==
[2019-07-06 13:18] VITALS: BP 117/76; PULSE 89; RESP 16; TEMP 36.5; O2SAT 99; BMI 24.4
--- NOTE | 2019-07-06 13:40 | RAD_ITS ---
STUDY: X-RAY - RIGHT HAND REASON FOR EXAM: Female, 34 years old. Pain in the region of the fifth digit following injury. TECHNIQUE: 3 view(s) of the hand. COMPARISON: None. FINDINGS: Normal radiocarpal articulation. Normal distal radioulnar joint. Normal visualized carpal bones. Normal carpal articulations Normal carpometacarpal articulation of the thumb. Normal second through fifth carpometacarpal joints. Normal metacarpi. Normal metacarpophalangeal joint of the thumb. Normal interphalangeal joint of the thumb. Normal proximal and distal phalanges of the thumb. Normal metacarpophalangeal joints of the second through fifth fingers. Normal proximal and distal interphalangeal joints of the second through fifth fingers. Normal phalanges of the second through fifth fingers. Soft tissue swelling overlying the fifth digit. RAD/Hand Min 3 Views IMPRESSION: Soft tissue swelling overlying the fifth digit. Electronically Signed: Hilario Pagan, at 13:59 EDT , Service support ,
--- NOTE | 2019-07-06 14:33 | ED.DCSUM_ITS ---
- ER Visit Summary Date of Service: 07/06/19 Chief Complaint: Right hand injury History of Present Illness: The patient is a 34 F who presents with right hand injury that occurred 5 days ago. Patient states her boyfriend's heavy tote fell onto her right hand 5 days ago. Patient states the pain is throbbing. Patient admits to some numbness and tingling in her fifth finger. Patient states her pain is worse with any movement. Patient denies any weakness. Patient denies any other injuries. Patient states she has been taking Tylenol with no improvement. Physical Examination: Vital signs are stable. Patient is afebrile. Patient is in no acute distress. Musculoskeletal exam reveals tenderness with mild edema and ecchymosis over the right fifth finger. There is no bony crepitance or step-off. Range of motion was limited in all motions of the right fifth finger secondary to pain. Sensation was intact to light touch in all digits. Capillary refill was less than 2 seconds in all digits. Test Results: X-rays of the right hand were obtained. There is no acute fracture. These were interpreted by the radiologist and myself. Emergency Department Course and Treatment: Patient was given an [facility] spli nt. Patient was instructed to ice and elevate the right hand. Patient was instructed to continue Tylenol as needed for pain. Patient understood and was agreeable with the plan. All questions were answered. Disposition: Discharge home Impression: Right hand contusion This note was generated with [employer] dictation software. It may contain incorrect words, spelling, and punctuation that were not noted in review of the chart prior to signing ED Disposition - Plan for ED Patient: Disposition: Home or Assisted Living Diagnosis: Contusion of right hand, initial encounter Instructions: CONTUSION, Upper Extremity Referrals: Care Physician,No Primary [Primary Care Provider] -
== END 2019-07-06 14:37 | disposition home or self-care (01) ==
PROVIDERS: Emergency Provider Emergency Medicine
DX: S60.221A Contusion of right hand, initial encounter (principal); W22.8XXA Striking against or struck by other objects, initial encounter; Y93.9 Activity, unspecified; Y92.9 Unspecified place or not applicable; Z72.0 Tobacco use
CPT/HCPCS: 73130; 99283

== ENCOUNTER 2019-07-22 11:40 | Emergency (ER) | payer MEDICAID, SELFPAY ==
[2019-07-22 11:42] VITALS: BP 120/77; PULSE 112; RESP 16; TEMP 36.3; O2SAT 99; BMI 26.8
--- NOTE | 2019-07-22 11:52 | RAD_ITS ---
STUDY: X-RAY - LEFT HAND REASON FOR EXAM: Female, 34 years old. Pain following injury. TECHNIQUE: 3 view(s) of the hand. COMPARISON: None. FINDINGS: Normal radiocarpal articulation. Normal distal radioulnar joint. Normal visualized carpal bones. Normal carpal articulations Normal carpometacarpal articulation of the thumb. Normal second through fifth carpometacarpal joints. Normal metacarpi. Normal metacarpophalangeal joint of the thumb. Normal interphalangeal joint of the thumb. Normal proximal and distal phalanges of the thumb. Normal metacarpophalangeal joints of the second through fifth fingers. Normal proximal and distal interphalangeal joints of the second through fifth fingers. Normal phalanges of the second through fifth fingers. Soft tissue swelling. RAD/Hand Min 3 Views IMPRESSION: Soft tissue swelling. Electronically Signed: Hilario Pagan, at 12:28 EST , Service support ,
--- NOTE | 2019-07-22 12:12 | ED.VISSUMM ---
- ER Visit Summary Date of Service: 07/22/19 Chief Complaint: [Injury to left hand] History of Present Illness: The patient is a 34 F [resents to the emergency department with an injury to her left hand that occurred 2 days ago. Patient states that she punched a door because she was angry. Patient is left-hand dominant. Patient says she had a hard time sleeping secondary to pain. Patient has history of asthma, peptic ulcer disease, history of ADHD, and bipolar disorder.] Physical Examination: [Hand-patient has no obvious deformities noted. No significant soft tissue swelling, ecchymosis, or bruising. Patient has diffuse tenderness about the hand as well as the fingers and really does not seem to localize to any one area. Neurovascularly intact. Good range of motion all digits.] Test Results: [X-rays of the left hand obtained were normal.] Emergency Department Course and Treatment: [Given an Yusuf wrap.] Treatment Plan: [Patient will be given referral to primary care physician for follow-up in 5 to 7 days. Patient advised to use Tylenol for discomfort.] Disposition: [Discharged home in stable condition] Impression: [Contusion left hand] This note was generated with [employer] dictation software. It may contain incorrect words, spelling, and punctuation that were not noted in review of the chart prior to signing ED Disposition - Plan for ED Patient: Referrals: Care Physician,No Primary [Primary Care Provider] -
--- NOTE | 2019-07-22 12:14 | ED.DEP ---
ED Disposition - Plan for ED Patient: Instructions: CONTUSION, Hand Referrals: Care Physician,No Primary [Primary Care Provider] - Debbie Aviles MD [STAFF PHYSICIAN] - 5-7 Days
[2019-07-22 12:59] VITALS: PULSE 98; RESP 17; O2SAT 98
== END 2019-07-22 13:00 | disposition home or self-care (01) ==
LOC: ED 12:17
PROVIDERS: Emergency Provider Emergency Medicine
DX: S60.222A Contusion of left hand, initial encounter (principal); W22.09XA Striking against other stationary object, initial encounter; Y93.89 Activity, other specified; J45.909 Unspecified asthma, uncomplicated; F17.200 Nicotine dependence, unspecified, uncomplicated
CPT/HCPCS: 73130; 99282

== ENCOUNTER 2019-08-01 16:14 | Emergency (ER) | payer MEDICAID, SELFPAY ==
[2019-08-01 16:15] VITALS: BP 109/77; PULSE 103; RESP 18; TEMP 36.4; O2SAT 97; BMI 25.0
--- NOTE | 2019-08-01 16:30 | EKG12_ITS ---
Test Reason : CP Blood Pressure : / mmHG Vent. Rate : 100 BPM Atrial Rate : 100 BPM P-R Int : 120 ms QRS Dur : 098 ms QT Int : 352 ms P-R-T Axes : 065 097 043 degrees QTc Int : 454 ms Normal sinus rhythm Rightward axis Borderline ECG Confirmed by FORTINO HURTADO MD ([id number]), assignment editor LUPILLO NUGENT ([id number]) on 08/03/2019 11:22:33 AM Referred By: LARA
--- NOTE | 2019-08-01 17:18 | ED.VISSUMM ---
- ER Visit Summary Date of Service: 08/01/19 Chief Complaint: [Cough] History of Present Illness: The patient is a 34 F [presents to the emergency department with a cough and some shortness of breath. Patient states that she has not been feeling well for about a week and a half. Patient states she had fever at home up to 100.1. She denies any sick contacts. Patient complains of chills and body aches. Cough at times productive of green sputum. She has had some intermittent diarrhea.] Physical Examination: HEENT-PERRLA, EOMI. Cranial nerves II through XII grossly intact. TMs clear. Mucous membranes moist. No adenopathy. Cardiovascular-regular rate and rhythm without murmur or ectopy Lungs-clear to auscultation, chest wall stable without crepitus or subcu emphysema. Patient has mild tenderness to the anterior chest wall diffusely that reproduces her pain. Abdomen-normoactive bowel sounds, soft, nontender, no rebound or rigidity, no peritoneal signs. Extremities-intact ?4, normal range of motion, normal pulses, atraumatic [] Test Results: [EKG obtained on arrival by nursing staff showed a sinus rhythm with a ventricular rate of 100 bpm with no acute segment changes.] Emergency Department Course and Treatment: [] Treatment Plan: [She will be given a prescription for doxycycline, Tessalon Perles, naproxen. Patient will be referred to primary care physician marionette performer for no doc for follow-up.] Disposition: [Discharged home in stable condition.] Impression: [Bronchitis Chest wall pain] This note was generated with [employer] dictation software. It may contain incorrect words, spelling, and punctuation that were not noted in review of the chart prior to signing ED Disposition - Plan for ED Patient: Referrals: Care Physician,No Primary [Primary Care Provider] -
--- NOTE | 2019-08-01 17:20 | ED.DEP ---
ED Disposition - Plan for ED Patient: Instructions: BRONCHITIS, Antiobiotic Treatment (Adult) Prescriptions: Doxycycline 100 mg PO BID #20 cap Prescription Printed Benzonatate [Tessalon Perle] 200 mg PO TID PRN PRN #20 cap PRN Reason: Cough Prescription Printed Referrals: Care Physician,No Primary [Primary Care Provider] - Andrae Yañez MD [NON-STAFF] - 3-5 Days
[2019-08-01 17:29] VITALS: RESP 18
== END 2019-08-01 17:34 | disposition home or self-care (01) ==
LOC: ED 17:26
PROVIDERS: Emergency Provider Emergency Medicine
DX: J40 Bronchitis, not specified as acute or chronic (principal); R07.89 Other chest pain; F17.200 Nicotine dependence, unspecified, uncomplicated
CPT/HCPCS: 93005; 99282

== ENCOUNTER 2019-08-17 19:16 | Emergency (ER) | payer MEDICAID, SELFPAY ==
[2019-08-17 19:17] VITALS: BP 108/66; PULSE 79; RESP 16; TEMP 36.7; O2SAT 98; BMI 26.2
--- NOTE | 2019-08-17 19:51 | ED.DCSUM_ITS ---
History of Present Illness Chief Complaint: Cough Informant: Patient Onset: Days Context: Gradual Onset Timing: Intermittent Current Severity: Moderate Maximum Severity: Moderate Narrative: The patient presents to the emergency department with bilateral ear pain, cough, and sore throat. She states she had the symptoms for a month. She was seen here about 3 weeks ago. She was diagnosed with bronchitis and got a prescription for antibiotics. She states she cannot fill them because of her lack of insurance. She states that she presents today because she is had pe rsistent symptoms. The patient does continue to smoke. She does not think she is had fever. She has been using her inhaler with improvement. Prior similar symptoms: Yes Recent Illness/Hospitalization: No Past Medical History - Allergies and Home Meds Allergies/Adverse Reactions: Allergies ibuprofen Allergy (Verified 08/01/19 16:15) Anaphylaxis NSAIDS (Non-Steroidal Anti-Inflamma Allergy (Verified 08/01/19 16:15) Anaphylaxis Penicillins [PCN] Allergy (Verified 08/01/19 16:15) Anaphylaxis adhesive tape Adverse Reaction (Verified 08/01/19 16:15) Rash Primary Care Physician: Care Physician,No Primary [Primary Care Provider] - Prior records reviewed: Yes Past Medical History: - - Asthma Surgical History: no surgical history Smoking Status: Current every day smoker Review of Systems General: Denies: Chills, Fever, Sweats Eyes: Denies: Visual changes - bilaterally, Diplopia ENT: Reports: Bilateral ear pain, Sore throat. Denies: Rhinorrhea Cardiovascular: Denies: Chest pain, Palpitations Respiratory: Reports: Cough. Denies: Dyspnea, Dyspnea on exertion Gastrointestinal: Denies: Abdominal pain, Nausea, Vomiting, Diarrhea, Melena, Hematochezia Genitourinary: Denies: Dysuria, Hematuria, Frequency Musculoskeletal: Denies: Back pain, Extremity Pain Skin: Denies: Rash, Wounds Neurological: Denies: Headache, Weakness, Numbness Physical Exam Vital Signs/Narrative: Vital Signs Temp Pulse Resp BP Pulse Ox 08/17/19 19:17 98.1 F 79 16 108/66 98 Inital Vital Signs reviewed: Yes General: Well nourished, Well developed, No Acute Distress Head: Normocephalic, Atraumatic Eyes: Perrl, EOMI ENT: Moist mucous membranes, No rhinorrhea, - - TMs are erythematous and bulging bilaterally Neck: Supple, Nontender Cardiovascular: Regular rate, Regular rhythm, No murmurs Respiratory: No distress, Chest nontender, Wheezing Abdomen: Soft, Nontender, Nondistended, Normal bowel sounds Back: Nontender, Normal Inspection Extremities: Nontender, No edema Skin: Normal color, No rash Neurological: Alert, Oriented x3, Cranial nerves II-XII grossly intact, Normal Strength, Normal Sensation Psychological: Normal affect, Normal Mood Diagnostic/Tx/Re-eval - Medical Decision Making The patient presents to the emergency department with cough, wheezing, and bilateral otitis. She said the symptoms for 3 weeks. She never had her antibiotics filled. She has no mastoid tenderness. She has no focal change in lung sounds. She was dispensed an inhaler. Patient underwent test which was negative. She will be treated with prednisone and doxycycline. She was counseled on the importance of having her prescriptions filled. She will be discharged home. Impression 1. Bronchitis 2. Acute bilateral otitis media without perforation ED Disposition - Plan for ED Patient: Instructions: BRONCHITIS with Wheezing (Adult) Prescriptions: Prednisone [Deltasone] 60 mg PO DAILY #15 tab Prescription Printed Doxycycline 100 mg PO BID #20 cap Prescription Printed Referrals: Care Physician,No Primary [Primary Care Provider] -
[2019-08-17 20:17] LABS: Internal QC Validated? YES +Cl - CLEAR BKGD; Pregnancy, Urine Negative Negative
[2019-08-17] MEDS: predniSONE 20 MG Tablet 60 MG PO (20:37)
[2019-08-17] MEDS: Doxycycline 100 MG CAPSULE PO (20:37)
== END 2019-08-17 20:40 | disposition home or self-care (01) ==
LOC: ED 19:44
PROVIDERS: Emergency Provider Emergency Medicine
DX: J40 Bronchitis, not specified as acute or chronic (principal); H66.93 Otitis media, unspecified, bilateral; F17.200 Nicotine dependence, unspecified, uncomplicated
CPT/HCPCS: 81025; 99283

== ENCOUNTER 2019-10-26 17:33 | Emergency (ER) | payer MEDICAID, SELFPAY ==
[2019-10-26 17:35] VITALS: BP 127/87; PULSE 94; RESP 16; TEMP 36.7; O2SAT 99; BMI 24.2
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
--- NOTE | 2019-10-26 18:54 | ED.VISSUMM ---
- ER Visit Summary Date of Service: 10/26/19 Chief Complaint: Right hand pain History of Present Illness: The patient is a 34 F who presents with right hand pain that began after a fall 2 days ago. Patient states she fell into her door frame. Patient states her pain is throbbing. Patient states her pain is worse whenever she uses it. Patient admits to some tingling in her hand. Patient denies any weakness. Patient denies any head injury or loss of consciousness. Patient denies any other injuries. Physical Examination: Vital signs are stable. Patient is afebrile. Patient is in no acute distress. Musculoskeletal exam reveals tenderness over the right first metacarpal and radial aspect of her distal radius. There is mild edema. There is no ecchymosis. There is no deformity noted. Range of motion was limited in all motions of the right hand secondary to pain. There is no laxity appreciated. Sensation was intact to light touch in all digits. Capillary refill was less than 2 seconds in all digits. Radial pulses are equal bilaterally. Test Results: X-rays of the right hand were obtained. There is no acute fracture. These were interpreted by the radiologist and myself. Emergency Department Course and Treatment: Patient was given a thumb spica splint. Patient was instructed to ice and elevate the right hand. Patient was instructed to take Tylenol as needed for pain. Patient was instructed to follow-up with her primary care physician in 5 to 7 days. Patient understood and was agreeable with the plan. All questions were answered. Disposition: Discharge home Impression: Right hand sprain This note was generated with Be[employer] dictation software. It may contain incorrect words, spelling, and punctuation that were not noted in review of the chart prior to signing ED Disposition - Plan for ED Patient: Disposition: Home or Assisted Living Diagnosis: Sprain of right hand Instructions: Wrist Sprain Referrals: Care Physician,No Primary [Primary Care Provider] - Liam Terry MD [NON-STAFF] - 5-7 Days
[2019-10-26 19:26] VITALS: BP 114/81; PULSE 89; RESP 18; O2SAT 100
== END 2019-10-26 19:27 | disposition home or self-care (01) ==
PROVIDERS: Emergency Provider Emergency Medicine
DX: S63.91XA Sprain of unspecified part of right wrist and hand, initial encounter (principal); W19.XXXA Unspecified fall, initial encounter; Y93.9 Activity, unspecified; Y92.9 Unspecified place or not applicable; Z72.0 Tobacco use
CPT/HCPCS: 73130; 99283

== ENCOUNTER 2019-12-08 17:00 | Emergency (ER) | payer MEDICAID, SELFPAY ==
[2019-12-08 17:01] VITALS: BP 131/86; PULSE 112; RESP 16; TEMP 36.6; O2SAT 98; BMI 24.5
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
[2019-12-08] MEDS: Morphine 4 MG/ML Syringe IM (18:00)
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
[2019-12-08] MEDS: Acetaminophen 500 MG Tablet 1000 MG PO (19:09)
== END 2019-12-08 19:11 | disposition home or self-care (01) ==
PROVIDERS: Emergency Provider Emergency Medicine
DX: S40.011A Contusion of right shoulder, initial encounter (principal); V19.88XA Pedal cyclist (driver) (passenger) injured in other specified transport accidents, initial encounter; Y93.55 Activity, bike riding; Y92.9 Unspecified place or not applicable; Y99.8 Other external cause status; R07.81 Pleurodynia; J45.909 Unspecified asthma, uncomplicated; F17.200 Nicotine dependence, unspecified, uncomplicated
CPT/HCPCS: 71101; 73000; 73060; 96372; 99283

== ENCOUNTER 2020-02-20 15:06 | Emergency (ER) | payer MEDICAID, SELFPAY ==
[2020-02-20 15:08] VITALS: BP 132/89; PULSE 86; RESP 17; TEMP 36.8; O2SAT 97; BMI 24.0
--- NOTE | 2020-02-20 15:18 | RAD_ITS ---
STUDY: X-RAY - LEFT RADIUS AND ULNA REASON FOR EXAM: Female, 35 years old. HYPER EXTENDED WRIST YESTERDAY TECHNIQUE: 2 view(s) of the forearm. COMPARISON: None. FINDINGS: There is no demonstrated soft tissue swelling. Normal visualized radius. Normal visualized ulna. RAD/Forearm 2 Views IMPRESSION: Normal x-ray examination of the radius and ulna. Electronically Signed: Pasha Andersen, at 16:20 EDT Tel , Service support ,
--- NOTE | 2020-02-20 15:18 | RAD_ITS ---
STUDY: X-RAY - LEFT HAND REASON FOR EXAM: Female, 35 years old. Hyperextension TECHNIQUE: 3 view(s) of the hand. COMPARISON: None. FINDINGS: No fracture or dislocation. The soft tissue structures are unremarkable. RAD/Hand Min 3 Views IMPRESSION: Normal x-ray examination of the hand. Electronically Signed: Pasha Andersen, at 16:24 EDT Tel , Service support ,
--- NOTE | 2020-02-20 15:19 | ED.VIS.GEN ---
History of Present Illness Chief Complaint: Upper Extremity Injury Informant: Patient Onset: Yesterday Current Severity: Moderate Maximum Severity: Moderate Narrative: Patient presents with pain to the left upper extremity. She states that she bent her wrist back yesterday and felt a pop. She has pain from the hand up through the proximal forearm. She is left-hand dominant. She does report some tingling in her left hand. She has not taken anything for pain at this time. - Past Medical History (1) Asthma Status: Chronic (2) Bipolar 1 disorder Status: Chronic (3) GERD (gastroesophageal reflux disease) Status: Chronic (4) Hypertension Status: Chronic Past Medical History - Allergies and Home Meds Allergies/Adverse Reactions: Allergies ibuprofen Allergy (Verified 02/20/20 15:07) Anaphylaxis NSAIDS (Non-Steroidal Anti-Inflamma Allergy (Verified 02/20/20 15:07) Anaphylaxis Penicillins [PCN] Allergy (Verified 02/20/20 15:07) Anaphylaxis adhesive tape Adverse Reaction (Verified 02/20/20 15:07) Rash Primary Care Physician: Care Physician,No Primary [Primary Care Provider] - Lives: Spouse/ Significant Other Smoking Status: Current every day smoker Review of Systems General: Denies: Chills, Fever Eyes: Denies: Visual changes - bilaterally ENT: Denies: Bilateral ear pain Cardiovascular: Denies: Chest pain Respiratory: Denies: Dyspnea, Cough Gastrointestinal: Denies: Abdominal pain, Nausea, Vomiting, Diarrhea Musculoskeletal: Reports: Extremity Pain Skin: Denies: Rash Neurological: Reports: Weakness, Parasthesia Hematologic: Denies: Easy bruising, Easy bleeding Allergy: Denies: Uticaria Physical Exam Vital Signs/Narrative: Vital Signs Temp Pulse Resp BP Pulse Ox 02/20/20 15:08 98.2 F 86 17 132/89 H 97 Inital Vital Signs reviewed: Yes General: Well nourished, Well developed Head: Normocephalic ENT: Moist mucous membranes Neck: Supple Cardiovascular: Regular rate, Regular rhythm Respiratory: No distress, CTA bilaterally Extremities: - - Patient has diffuse tenderness throughout the dorsal left hand and forearm. No significant edema noted. Does have pain with passive range of motion of her fingers. Good cap refill and sensation of the fingertips. No tenderness of the elbow or shoulder. Skin: Normal color Neurological: Alert, Oriented x3 Psychological: Normal affect Diagnostic/Tx/Re-eval Impressions Forearm X-Ray 02/20/20 15:18 IMPRESSION: Normal x-ray examination of the radius and ulna. Electronically Signed: Pasha Andersen, at 16:20 EDT Tel , Service support , Hand X-Ray 02/20/20 15:18 IMPRESSION: Normal x-ray examination of the hand. Electronically Signed: Pasha Andersen, at 16:24 EDT Tel , Service support , 02/20/20 15:18 Forearm 2 Views [RAD] Stat Hand Min 3 Views [RAD] Stat - Medical Decision Making Patient was given Tylenol here for pain and she does have an allergy to NSAIDs. X-ray results are discussed with her. She will be placed in a Velcro wrist splint. She is referred to orthopedics if not improving in 1 week. ED Disposition - Plan for ED Patient: Disposition: Home or Assisted Living Diagnosis: Wrist sprain Instructions: ED Sprain Wrist Referrals: Shashank Murrell DO [STAFF PHYSICIAN] - 1 Week if not improving
[2020-02-20] MEDS: Acetaminophen 500 MG Tablet 1000 MG PO (15:27)
== END 2020-02-20 17:03 | disposition home or self-care (01) ==
PROVIDERS: Emergency Provider Emergency Medicine
DX: S63.502A Unspecified sprain of left wrist, initial encounter (principal); J45.909 Unspecified asthma, uncomplicated; F17.200 Nicotine dependence, unspecified, uncomplicated; Z79.51 Long term (current) use of inhaled steroids; X50.1XXA Overexertion from prolonged static or awkward postures, initial encounter; Y93.89 Activity, other specified; Y92.89 Other specified places as the place of occurrence of the external cause; Y99.8 Other external cause status
CPT/HCPCS: 73090; 73130; 99283

== ENCOUNTER 2020-03-21 19:05 | Emergency (ER) | payer MEDICAID, SELFPAY ==
[2020-03-21 19:06] VITALS: BP 131/88; PULSE 114; RESP 16; TEMP 36.6; O2SAT 98; BMI 24.3
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
[2020-03-21] MEDS: Oxymetazoline 0.05% 1 SPRAY SPRAY.BTL 2 SPRAY NASAL (19:34)
[2020-03-21] MEDS: predniSONE 20 MG Tablet 40 MG PO (19:36)
[2020-03-21 19:38] VITALS: BP 131/88; PULSE 114; RESP 15; TEMP 36.6; O2SAT 95; O2SAT 96
== END 2020-03-21 20:05 | disposition home or self-care (01) ==
PROVIDERS: Emergency Provider Emergency Medicine
DX: J45.909 Unspecified asthma, uncomplicated (principal)
CPT/HCPCS: 99283

== ENCOUNTER 2020-04-27 15:52 | Emergency (ER) | payer MEDICAID, SELFPAY ==
[2020-04-27 15:53] VITALS: BP 100/80; PULSE 99; RESP 16; TEMP 36.2; O2SAT 97; BMI 24.2
--- NOTE | 2020-04-27 16:05 | US_ITS ---
STUDY: FIRST TRIMESTER OBSTETRICAL ULTRASOUND REASON FOR EXAM: Female, 35 years old BLEEDING HEAVY WITH CLOTS beta hCG 23 LMP: 02/20/2020 TECHNIQUE: Transvaginal TECHNICAL QUALITY: Adequate. PRIOR ULTRASOUND: None. FINDINGS: No intrauterine gestation is visualized at this time. Bicornuate uterus. Both endometrial stripes are 3 mm thick. The uterus measures 6.7 x 5.3 x 3.0 cm. There is no demonstrated uterine fibroid. The cervix is closed. The right ovary measures 2.4 x 2.0 x 1.9 cm. There is no right ovarian cyst. There is no visualized right adnexal mass or complex lesion. The left ovary measures 2.6 x 1.6 x 1.5 cm. There is no left ovarian cyst. There is no visualized left adnexal mass or complex lesion. There is no fluid in the cul de sac. US/Transvaginal w/Preg US IMPRESSION: No intrauterine gestation is visualized. This ultrasound result could suggest intrauterine gestation too early for sonographic detection, missed , or ectopic gestation of unknown location. Continued beta hCG and ultrasound follow-up is recommended. Bicornuate uterus. Electronically Signed: Rich Garcias MD at 17:56 EDT Tel , Service support ,
--- NOTE | 2020-04-27 16:13 | ED.VIS.GEN ---
History of Present Illness Informant: Patient, Significant Other Onset: Yesterday Context: Gradual Onset Timing: Intermittent Quality: vaginal bleeding Location: vaginal bleeding Current Severity: Severe Maximum Severity: Severe Worsened by: nothing Relieved by: nothing Associated Symptoms: pelvic cramping Narrative: 35-year-old female presents with vaginal bleeding and pelvic pain with concern for miscarriage. She has had 3 miscarriages in the past. She is approximately 7 weeks . She started bleeding yesterday. She has passed several clots and no tissue. She is not lightheaded or dizzy. She is not on blood thinners. Denies any other symptoms of bleeding. She is not yet had an ultrasound with . She is G7, P3 AB 3 Prior similar symptoms: Yes Recent Illness/Hospitalization: No <Orestes Recinos - Last Filed: 04/27/20 17:33> <Cindy Wyman - Last Filed: 04/27/20 18:08> Chief Complaint: Vag Bld, Preg Past Medical History Prior records reviewed: Yes Past Medical History: None Surgical History: no surgical history Lives: With Family Smoking Status: Current every day smoker Alcohol: Occasional Drugs: None <Orestes Recinos - Last Filed: 04/27/20 17:33> <Cindy Wyman - Last Filed: 04/27/20 18:08> - Allergies and Home Meds Allergies/Adverse Reactions: Allergies ibuprofen Allergy (Verified 04/27/20 15:54) Anaphylaxis NSAIDS (Non-Steroidal Anti-Inflamma Allergy (Verified 04/27/20 15:54) Anaphylaxis Penicillins [PCN] Allergy (Verified 04/27/20 15:54) Anaphylaxis acetaminophen Adverse Reaction (Verified 04/27/20 15:54) Nausea adhesive tape Adverse Reaction (Verified 04/27/20 15:54) Rash Primary Care Physician: Care Physician,No Primary [Primary Care Provider] - Review of Systems All systems negative except as indicated General: Denies: Chills, Fever, Sweats Eyes: Denies: Visual changes - bilaterally, Diplopia ENT: Denies: Rhinorrhea, Sore throat Cardiovascular: Denies: Chest pain, Palpitations Respiratory: Denies: Dyspnea, Cough, Dyspnea on exertion Gastrointestinal: Denies: Abdominal pain, Nausea, Vomiting, Diarrhea, Melena, Hematochezia Genitourinary: Reports: - - Vaginal bleeding and pelvic pain. Denies: Dysuria, Hematuria, Frequency Musculoskeletal: Denies: Back pain, Swelling, Extremity Pain Skin: Denies: Rash, Wounds Neurological: Denies: Headache, Weakness, Numbness <JorjeOrestes - Last Filed: 04/27/20 17:33> Physical Exam Vital Signs/Narrative: Vital Signs Temp Pulse Resp BP Pulse Ox 04/27/20 15:53 97.1 F L 99 16 100/80 97 Inital Vital Signs reviewed: Yes General: Well nourished, Well developed, No Acute Distress Head: Normocephalic, Atraumatic Eyes: Perrl, EOMI ENT: Moist mucous membranes, No rhinorrhea Neck: Supple, Nontender Cardiovascular: Regular rate, Regular rhythm, No murmurs Respiratory: No distress, CTA bilaterally, Chest nontender Abdomen: Soft, Nontender, Nondistended, Normal bowel sounds Back: Nontender, Normal Inspection Extremities: Nontender, No edema Skin: Normal color, No rash Neurological: Alert, Oriented x3, Cranial nerves II-XII grossly intact, Normal Strength, Normal Sensation Psychological: Normal affect, Normal Mood <MaribelreaganOrestes - Last Filed: 04/27/20 17:33> Vital Signs/Narrative: Vital Signs Temp Pulse Resp BP Pulse Ox 04/27/20 15:53 97.1 F L 99 16 100/80 97 <Cindy Wyman - Last Filed: 04/27/20 18:08> Diagnostic/Tx/Re-eval Laboratory Tests 04/27/20 04/27/20 04/27/20 Range/Units 16:05 16:05 16:05 WBC (4.4-11.0) K/mm3 RBC (4.2-5.4) M/mm3 Hgb (12.0-15.0) g/dL Hct (37-47) % MCV (81-99) fL MCH (27.0-32.0) pg MCHC (32-36) g/dL RDW Std Deviation (35.1-43.9) fl RDW Coeff of Alley (11.6-14.6) % Plt Count (150-450) K/mm3 MPV (6.2-12.0) fl Immature Gran % (Auto) (0.0-0.9) % Neut % (Auto) (47-70) % Lymph % (Auto) (19-41) % Jessamine % (Auto) (0-10) % Eos % (Auto) (0-5) % Baso % (Auto) (0-1) % Absolute Neuts (auto) (2.0-7.7) X10^3/uL Absolute Lymphs (auto) (0.83-4.51) X10^3/uL Nucleated RBC % (0-5) % HCG, Quant 23 H (1-3) mIU/mL Blood Type O POSITIVE TNP 04/27/20 Range/Units 16:05 WBC 8.5 (4.4-11.0) K/mm3 RBC 4.53 (4.2-5.4) M/mm3 Hgb 12.8 (12.0-15.0) g/dL Hct 39.6 (37-47) % MCV 87.4 (81-99) fL MCH 28.3 (27.0-32.0) pg MCHC 32.3 (32-36) g/dL RDW Std Deviation 41.2 (35.1-43.9) fl RDW Coeff of Alley 13.1 (11.6-14.6) % Plt Count 481 H (150-450) K/mm3 MPV 8.3 (6.2-12.0) fl Immature Gran % (Auto) 0.400 (0.0-0.9) % Neut % (Auto) 69.8 (47-70) % Lymph % (Auto) 14.2 L (19-41) % Jess[place] % (Auto) 9.1 (0-10) % Eos % (Auto) 5.1 H (0-5) % Baso % (Auto) 1.4 H (0-1) % Absolute Neuts (auto) 5.9 (2.0-7.7) X10^3/uL Absolute Lymphs (auto) 1.20 (0.83-4.51) X10^3/uL Nucleated RBC % 0 (0-5) % HCG, Quant (1-3) mIU/mL Blood Type - Medical Decision Making Patient presents with vaginal bleeding. She has a history of multiple miscarriages. She states that this feels similar for her. Her CBC was unremarkable she has normal hemoglobin. Quantitative hCG was only 23. Ultrasound pending <Orestes Recinos - Last Filed: 04/27/20 17:33> ED Disposition <Orestes Recinos - Last Filed: 04/27/20 17:33> <Cindy Wyman - Last Filed: 04/27/20 18:08> - Plan for ED Patient: Instructions: ED Possible Miscarriage Threatened Referrals: Vale Tony MD [STAFF PHYSICIAN] -
[2020-04-27 16:28] LABS: Absolute Neutrophil Count 5.9 X10^3/uL (2.0-7.7); Basophil# 0.12 X10^3/uL; Basophil% 1.4 % (0-1); Eosinophil# 0.43 X10^3/uL; Eosinophils% 5.1 % (0-5); Hematocrit 39.6 % (37-47); Hemoglobin 12.8 g/dL (12.0-15.0); Lymphocyte % 14.2 % (19-41); Mean Corp Hgb Conc 32.3 g/dL (32-36); Mean Corpuscular Hgb 28.3 pg (27.0-32.0); Mean Corpuscular Volume 87.4 fL (81-99); Mean Platelet Vol. 8.3 fl (6.2-12.0); Monocyte# 0.77 X10^3/uL; Monocyte% 9.1 % (0-10); NRBC Flagged by Analyzer 0 % (0-5); Neutrophil # 5.91 X10^3/uL (2.7-7.7); Neutrophil % 69.8 % (47-70); Platelet Count 481 K/mm3 (150-450); RBC Distribution Width CV 13.1 % (11.6-14.6); RBC Distribution Width SD 41.2 fl (35.1-43.9); Red Blood Count 4.53 M/mm3 (4.2-5.4); White Blood Count 8.5 K/mm3 (4.4-11.0)
[2020-04-27] MEDS: 0.9% Normal Saline 1,000 ML 1000 ML IV (16:54)
[2020-04-27 17:07] LABS: hCG Titer Quant., Serum 23 mIU/mL (1-3)
[2020-04-27 17:39] LABS: Mucous, Urine 0 SEEN /hpf (<or=2+)
[2020-04-27 17:41] LABS: Color, Urine Yellow (Yellow); Glucose, Dipstick Normal (Normal); Ketone-Dipstick 15 mg/dl (Negative); Leukocyte Esterase-Dipstick 25 /ul (Negative); Nitrite-Dipstick Positive (Negative); Occult Blood-Urine 250 /ul (Negative); Protein-Dipstick 100 mg/dl (Negative); Specific Gravity, Urine 1.025 (1.002-1.030); Urine Clarity Cloudy (Clear); Urine Urobilinogen 4 mg/dl (Normal)
[2020-04-27 17:53] LABS: Urine Bilirubin Dipstick 3 mg/dL (Negative)
[2020-04-27 18:00] LABS: Bacteria 2+ /hpf (None Seen); Red Blood Cells-Urine > 100 SEEN /hpf (0-5); Squamous Epithelial Cells - UA 0-5 SEEN /hpf (5-10); White Blood Cells 0-5 SEEN /hpf (0-5)
[2020-04-27 18:16] VITALS: BP 107/66; PULSE 83; RESP 18
--- NOTE | 2020-04-28 00:43 | ED.DCSUM_ITS ---
- ER Visit Summary Date of Service: 04/28/20 This is an addendum to the previous dictation. I have personally performed a [id number] assessment of the patient and have reviewed the PA note. My lugo findings include: 35-year-old female presenting with vaginal bleeding in . She is approximately 7 weeks . She has had multiple misc arriages in the past. On exam her vitals are stable. Her abdomen is soft nontender. Blood type is O+. hCG quant is 23. Pelvic ultrasound shows no intrauterine gestation is visualized. This ultrasound result could suggest intrauterine gestation too early for sonographic detection, missed , or ectopic gestation of unknown location. Continued beta hCG and ultrasound follow-up is recommended. Bicornuate uterus. On reevaluation, patient is resting comfortably. She is advised of these findings and the importance of follow-up with [facility] [employer] [facility] [employer] [facility]. She is given Dr. Tony on-call for [facility] no doctor. Advised to return to the ED for worsening complaints. Disposition: Discharge home Impression: Threatened This note was generated with [employer] dictation software. It may contain incorrect words, spelling, and punctuation that were not noted in review of the chart prior to signing ED Disposition - Plan for ED Patient: Disposition: Home or Assisted Living Instructions: ED Possible Miscarriage Threatened Referrals: Vale Tony MD [STAFF PHYSICIAN] -
== END 2020-04-27 18:18 | disposition home or self-care (01) ==
PROVIDERS: Physician Assistant Medical; Emergency Provider Emergency Medicine
DX: O20.0 Threatened abortion (principal); O26.21 Pregnancy care for patient with recurrent pregnancy loss, first trimester; O34.01 Maternal care for unspecified congenital malformation of uterus, first trimester; Q51.3 Bicornate uterus; O99.331 Smoking (tobacco) complicating pregnancy, first trimester; F17.200 Nicotine dependence, unspecified, uncomplicated; Z3A.01 Less than 8 weeks gestation of pregnancy
CPT/HCPCS: 76817; 81001; 84702; 85025; 86900; 86901; 99283; J7030; A4216

== ENCOUNTER 2020-07-02 14:03 | Emergency (ER) | payer MEDICAID, SELFPAY ==
[2020-07-02 14:05] VITALS: BP 125/81; PULSE 89; RESP 18; TEMP 36.7; O2SAT 98; BMI 24.4
--- NOTE | 2020-07-02 14:18 | RAD_ITS ---
STUDY: X-RAY - RIGHT ELBOW REASON FOR EXAM: Female, 35 years old. Fell down stairs 2 days ago, entire arm pain, painful to straighten elbow TECHNIQUE: 3 view(s) of the elbow. COMPARISON: None. FINDINGS: Normal visualized humerus, radius and ulna. Normal radiocapitellar and ulnotrochlear articulations. The soft tissue structures are unremarkable. RAD/Elbow min 3 Views IMPRESSION: Normal x-ray examination of the elbow. Electronically Signed: Hilario Pagan, at 15:05 EDT , Service support ,
--- NOTE | 2020-07-02 14:18 | RAD_ITS ---
STUDY: X-RAY - RIGHT SHOULDER REASON FOR EXAM: Female, 35 years old. Fell down stairs 2 days ago, pain entire arm -- unable to rotate arm for external and internal views TECHNIQUE: 2 view(s) of the shoulder. COMPARISON: None. FINDINGS: Normal glenohumeral articulation. Normal acromioclavicular joint. Normal acromion. Normal humeral head and visualized proximal humerus. The soft tissue structures are unremarkable. Normal visualized pulmonary apex. RAD/Shoulder min 2 Views IMPRESSION: Normal x-ray examination of the shoulder. Electronically Signed: Hilario Pagan, at 15:06 EDT , Service support ,
--- NOTE | 2020-07-02 14:20 | ED.VIS.GEN ---
History of Present Illness Chief Complaint: Upper Extremity Injury Informant: Patient Onset: Days Context: Sudden Onset Timing: Continuous Current Severity: Moderate Maximum Severity: Severe Narrative: Patient is a 35-year-old female who presents to the emergency department with right shoulder injury. She states that 2 days ago, she fell down some stairs. She states that she was holding onto a door frame and slipped. She fell with her right arm above her head and struck her right shoulder. She states that she hit her head but did not lose consciousness. Since then, she has had a lot of pain in her shoulder. She describes painful range of motion in all directions. She has not taken anything for her pain. She denies abdominal pain or chest pain. She denies other injury. She is right-hand dominant. Prior similar symptoms: Yes Recent Illness/Hospitalization: No Past Medical History - Allergies and Home Meds Allergies/Adverse Reactions: Allergies ibuprofen Allergy (Verified 07/02/20 14:07) Anaphylaxis NSAIDS (Non-Steroidal Anti-Inflamma Allergy (Verified 07/02/20 14:07) Anaphylaxis Penicillins [PCN] Allergy (Verified 07/02/20 14:07) Anaphylaxis acetaminophen Adverse Reaction (Verified 07/02/20 14:07) Nausea adhesive tape Adverse Reaction (Verified 07/02/20 14:07) Rash Primary Care Physician: Care Physician,No Primary [Primary Care Provider] - Prior records reviewed: Yes Past Medical History: None Surgical History: no surgical history Smoking Status: Current every day smoker Review of Systems General: Denies: Chills, Fever, Sweats Eyes: Denies: Visual changes - bilaterally, Diplopia ENT: Denies: Rhinorrhea, Sore throat Cardiovascular: Denies: Chest pain, Palpitations Respiratory: Denies: Dyspnea, Cough, Dyspnea on exertion Gastrointestinal: Denies: Abdominal pain, Nausea, Vomiting, Diarrhea, Melena, Hematochezia Genitourinary: Denies: Dysuria, Hematuria, Frequency Musculoskeletal: Reports: Myalgias, Arthralgias. Denies: Back pain, Extremity Pain Skin: Denies: Rash, Wounds Neurological: Denies: Headache, Weakness, Numbness Physical Exam Vital Signs/Narrative: Vital Signs Temp Pulse Resp BP Pulse Ox 07/02/20 14:05 98.0 F 89 18 125/81 H 98 Inital Vital Signs reviewed: Yes General: Well nourished, Well developed, No Acute Distress Head: Normocephalic, Atraumatic Eyes: Perrl, EOMI ENT: Moist mucous membranes, No rhinorrhea Neck: Supple, Nontender Cardiovascular: Regular rate, Regular rhythm, No murmurs Respiratory: No distress, CTA bilaterally, Chest nontender Abdomen: Soft, Nontender, Nondistended, Normal bowel sounds Back: Nontender, Normal Inspection Extremities: No edema, Tenderness - Tender over right shoulder with diminished range of motion secondary to pain. No gross laxity. Axillary nerve preserved. 2+ symmetric upper extremity pulses. Skin: Normal color, No rash Neurological: Alert, Oriented x3, Cranial nerves II-XII grossly intact, Normal Strength, Normal Sensation Psychological: Normal affect, Normal Mood Diagnostic/Tx/Re-eval Clinical Impression(s) from Imaging Studies Elbow X-Ray 07/02/20 14:18 IMPRESSION: Normal x-ray examination of the elbow. Electronically Signed: Hilario Pagan, at 15:05 EDT , Service support , Shoulder X-Ray 07/02/20 14:18 IMPRESSION: Normal x-ray examination of the shoulder. Electronically Signed: Hilario Pagan, at 15:06 EDT , Service support , - Medical Decision Making Patient presents with shoulder and elbow injury after fall. She has no gross laxity or obvious deformity. Her pulses are preserved. Plain films obtained which show no acute fracture dislocation. Patient will continue Tylenol. She will be placed in a sling for comfort but was counseled on range of motion exercises. I will also add antispasmodics. She will be discharged home. Impression 1. Right shoulder sprain status post fall ED Disposition - Plan for ED Patient: Instructions: ED Shoulder Sprain Prescriptions: cycloBENZAPRine HCl [Flexeril] 10 mg PO TID PRN #20 tab PRN Reason: Muscle Spasm Prescription Printed Referrals: Care Physician,No Primary [Primary Care Provider] -
[2020-07-02] MEDS: HYDROcodone Bitartrate/Apap 5/325 Tablet PO (14:21)
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
== END 2020-07-02 15:54 | disposition home or self-care (01) ==
LOC: ED 14:29
PROVIDERS: Emergency Provider Emergency Medicine
DX: S43.401A Unspecified sprain of right shoulder joint, initial encounter (principal); W10.9XXA Fall (on) (from) unspecified stairs and steps, initial encounter; Y93.9 Activity, unspecified; Y92.9 Unspecified place or not applicable; Y99.9 Unspecified external cause status; F17.200 Nicotine dependence, unspecified, uncomplicated
CPT/HCPCS: 73030; 73080; 99282

== ENCOUNTER 2020-11-29 15:11 | Emergency (ER) | payer MEDICAID, SELFPAY ==
[2020-11-29 15:12] VITALS: BP 112/72; PULSE 82; RESP 14; TEMP 36.3; O2SAT 98; BMI 27.1
--- NOTE | 2020-11-29 16:22 | CT_ITS ---
INDICATION: swelling neck masses EXAMINATION: CT Soft Tissue Neck W/ Contrast Injection TECHNIQUE: Helically acquired images were obtained of the neck following IV contrast. A radiation dose optimization technique was used for this scan. IV Contrast dosage and agent: 100 cc [id number] COMPARISON: None. FINDINGS: NASOPHARYNX: Unremarkable. SUPRAHYOID NECK: Unremarkable oropharynx, oral cavity, parapharyngeal space, and retropharyngeal space. INFRAHYOID NECK: Unremarkable larynx, hypopharynx, and supraglottis. THYROID: No focal lesions. SALIVARY GLANDS: Unremarkable. LYMPH NODES: Bilateral cervical lymphadenopathy at the following levels: -right level 4, largest measuring 2.5 x 1.9 cm -left level 4, largest measuring 2.2 x 2.5 cm -left level 5, largest measuring 4.7 x 4.2 cm VASCULAR STRUCTURES: Unremarkable. VISUALIZED PORTIONS OF THE ORBITS, PARANASAL SINUSES, MASTOID AIR CELLS AND SKULL BASE: Unremarkable. BONES: Unremarkable. THORACIC INLET: Clear lung apices. CT/Soft Tissue Neck WITH Contrast IMPRESSION: Bilateral cervical lymphadenopathy as described above could be related to infection or malignancy. Recommend biopsy. Electronically Signed: Johan Cordero MD at 18:25 EDT Tel , Service support ,
--- NOTE | 2020-11-29 16:28 | ED.VIS.GEN ---
History of Present Illness Chief Complaint: Edema Informant: Patient Narrative: Patient is a 35-year-old female with history of GERD, bipolar disorder and sciatica presenting with pain and swelling on bilateral neck. Patient states she has had this swelling/lumps for the past few months. She states initially she had an injury and that is when she started noticing the swelling. She states [facility] and the [facility] workers there thought that she should come to the ER to have it evaluated. States he started hurting yesterday. She is not taken anything for pain. She denies any difficulty swallowing or breathing. She denies any night sweats or weight loss. She denies any history of HIV. Past Medical History - Allergies and Home Meds Allergies/Adverse Reactions: Allergies ibuprofen Allergy (Verified 11/29/20 15:14) Anaphylaxis NSAIDS (Non-Steroidal Anti-Inflamma Allergy (Verified 11/29/20 15:14) Anaphylaxis Penicillins [PCN] Allergy (Verified 11/29/20 15:14) Anaphylaxis acetaminophen Adverse Reaction (Verified 11/29/20 15:14) Nausea adhesive tape Adverse Reaction (Verified 11/29/20 15:14) Rash Primary Care Physician: Care Physician,No Primary [Primary Care Provider] - Past Medical History: - - Asthma, GERD, bipolar disorder Surgical History: no surgical history Smoking Status: Current every day smoker Review of Systems General: Denies: Chills, Fever, Sweats, Weight loss Eyes: Denies: Visual changes - bilaterally, Diplopia ENT: Denies: Rhinorrhea, Sore throat Cardiovascular: Denies: Chest pain, Palpitations Respiratory: Denies: Dyspnea, Cough, Dyspnea on exertion Gastrointestinal: Denies: Abdominal pain, Nausea, Vomiting, Diarrhea, Melena, Hematochezia Genitourinary: Denies: Dysuria, Hematuria, Frequency Musculoskeletal: Reports: Neck pain, Swelling - bilateral neck . Denies: Back pain, Extremity Pain Skin: Denies: Rash, Wounds Neurological: Denies: Headache, Weakness, Numbness Hematologic: Denies: Easy bruising, Lymphadenopathy Physical Exam Vital Signs/Narrative: Vital Signs Temp Pulse Resp BP Pulse Ox 11/29/20 15:12 97.3 F L 82 14 112/72 98 Inital Vital Signs reviewed: Yes General: Well nourished, Well developed, No Acute Distress Head: Normocephalic, Atraumatic Eyes: Perrl, EOMI ENT: Moist mucous membranes, No rhinorrhea Neck: Supple, - - Tender lymphadenopathy right mid cervical chain. 5 cm circumferential soft tissue mass palpated at the base of the left neck, not fluctuant with no overriding erythema. Tender. Not mobile. Cardiovascular: Regular rate, Regular rhythm, No murmurs Respiratory: No distress, CTA bilaterally, Chest nontender Abdomen: Soft, Nontender, Nondistended, Normal bowel sounds Back: Nontender, Normal Inspection Extremities: Nontender, No edema Skin: Normal color, No rash Neurological: Alert, Oriented x3, Cranial nerves II-XII grossly intact, Normal Strength, Normal Sensation Psychological: Normal affect, Normal Mood Diagnostic/Tx/Re-eval Clinical Impression(s) from Imaging Studies Soft Tissue Neck CT 11/29/20 16:22 IMPRESSION: Bilateral cervical lymphadenopathy as described above could be related to infection or malignancy. Recommend biopsy. Electronically Signed: Johan Cordero MD at 18:25 EDT Tel , Service support , Laboratory Data 11/29/20 11/29/20 11/29/20 16:32 17:00 17:00 WBC 12.2 H RBC 4.26 Hgb 11.8 L Hct 37.3 MCV 87.6 MCH 27.7 MCHC 31.6 L RDW Std Deviation 45.1 H RDW Coeff of Alley 14.3 Plt Count 422 MPV 8.3 Immature Gran % (Auto) 0.700 Neut % (Auto) 72.0 H Lymph % (Auto) 11.9 L [place] % (Auto) 6.8 Eos % (Auto) 7.9 H Baso % (Auto) 0.7 Absolute Neuts (auto) 8.8 H Absolute Lymphs (auto) 1.45 Nucleated RBC % 0 Sodium 138 Potassium 4.0 Chloride 104 Carbon Dioxide 30.0 Anion Gap 4 L BUN 9 Creatinine 0.62 Estim Creat Clear Calc 109.96 Est GFR (MDRD) Af Amer 139 Est GFR (MDRD) Non-Af 115 BUN/Creatinine Ratio 14.4 Glucose 87 Calcium 8.8 Total Bilirubin 0.20 AST 8 L ALT 13 Alkaline Phosphatase 86 Total Protein 7.4 Albumin 3.3 Globulin 4.1 Albumin/Globulin Ratio 0.8 L Urine Test Negative Monoscreen 11/29/20 17:50 WBC RBC Hgb Hct MCV MCH MCHC RDW Std Deviation RDW Coeff of Alley Plt Count MPV Immature Gran % (Auto) Neut % (Auto) Lymph % (Auto) [place] % (Auto) Eos % (Auto) Baso % (Auto) Absolute Neuts (auto) Absolute Lymphs (auto) Nucleated RBC % Sodium Potassium Chloride Carbon Dioxide Anion Gap BUN Creatinine Estim Creat Clear Calc Est GFR (MDRD) Af Amer Est GFR (MDRD) Non-Af BUN/Creatinine Ratio Glucose Calcium Total Bilirubin AST ALT Alkaline Phosphatase Total Protein Albumin Globulin Albumin/Globulin Ratio Urine Test Monoscreen Negative - Medical Decision Making Patient is evaluated for worsening lymphadenopathy the past few months. She is unsure HIV status. She denies any night sweats or weight changes. [facility] She does have significant lymphadenopathy that is mildly tender in the bilateral neck. Left is greater than the right. CT with contrast is obtained which does show bilateral lymphadenopathy. Differential includes malignancy versus infection. Patient is a very mild leukocytosis with no significant laboratory normalities. Discussed with surgery on-call, Dr. Cespedes, who states he can do a biopsy in the office. Patient is counseled on this. She is counseled to possible malignancy and need for outpatient follow-up closely. She verbalizes agreement understand this plan. She is discharged home in stable condition. ED Disposition - Plan for ED Patient: Disposition: Home or Assisted Living Diagnosis: Lymphadenopathy of head and neck Referrals: Orestes Cespedes MD [STAFF PHYSICIAN] - Jaimie Mckeon [NON-STAFF] - Additional Instructions: You were checked for HIV today. The results are pending. You have enlarged lymph nodes is causing the swelling. Is not clear if this could be an infection or some type of cancer. Please follow-up with our general surgeon whom you have been referred to today. He will perform a biopsy in the office to further evaluate this.
[2020-11-29 17:04] LABS: Internal QC Validated? YES +Cl - CLEAR BKGD; Pregnancy, Urine Negative Negative
[2020-11-29 17:08] LABS: Absolute Lymphocyte Count 1.45 X10^3/uL (0.83-4.51); Absolute Neutrophil Count 8.8 X10^3/uL (2.0-7.7); Basophil# 0.09 X10^3/uL; Basophil% 0.7 % (0-1); Eosinophil# 0.96 X10^3/uL; Eosinophils% 7.9 % (0-5); Hematocrit 37.3 % (37-47); Hemoglobin 11.8 g/dL (12.0-15.0); Lymphocyte # 1.45 X10^3/ul (4.0); Lymphocyte % 11.9 % (19-41); Mean Corp Hgb Conc 31.6 g/dL (32-36); Mean Corpuscular Hgb 27.7 pg (27.0-32.0); Mean Corpuscular Volume 87.6 fL (81-99); Mean Platelet Vol. 8.3 fl (6.2-12.0); Monocyte# 0.83 X10^3/uL; Monocyte% 6.8 % (0-10); NRBC Flagged by Analyzer 0 % (0-5); Neutrophil # 8.79 X10^3/uL (2.7-7.7); Platelet Count 422 K/mm3 (150-450); RBC Distribution Width CV 14.3 % (11.6-14.6); RBC Distribution Width SD 45.1 fl (35.1-43.9); Red Blood Count 4.26 M/mm3 (4.2-5.4); White Blood Count 12.2 K/mm3 (4.4-11.0)
[2020-11-29 17:30] LABS: ALB/GLOB Ratio 0.8 RATIO (0.9-2.4); AST(SGOT) 8 U/L (15-37); Alanine Aminotransfer ALT/SGPT 13 U/L (13-56); Albumin, Serum 3.3 g/dL (3.2-5.0); Alkaline Phosphatase 86 U/L (45-117); Anion Gap 4 (5-15); BUN 9 mg/dL (7-18); BUN/Creat Ratio 14.4 RATIO (10-20); Calcium,Total 8.8 mg/dL (8.5-10.1); Chloride 104 mmol/L (98-107); Creatinine, Serum 0.62 mg/dL (0.55-1.02); EST Glomerular Filtration Rate 115 mL/min (>60); Est Glom Filt Rate - Afr Amer 139 mL/min (>60); Estimated Creatinine Clearance 109.96 ml/min; Globulin 4.1 g/dL (2.2-4.2); Glucose 87 mg/dL (74-106); Protein, Total 7.4 g/dL (6.4-8.2); Sodium Level 138 mmol/L (136-145)
[2020-11-29 18:14] LABS: Internal QC Validated? YES +Cl - CLEAR BKGD
[2020-11-29 18:15] LABS: Monotest Negative (Negative)
[2020-11-29 19:43] VITALS: BP 122/61; PULSE 87; RESP 20; O2SAT 98
[2020-11-29 20:19] LABS: HIV - WCH Non-Reactive (Nonreactive)
== END 2020-11-29 19:44 | disposition home or self-care (01) ==
PROVIDERS: Emergency Provider Emergency Medicine
DX: R59.0 Localized enlarged lymph nodes (principal); F17.200 Nicotine dependence, unspecified, uncomplicated
CPT/HCPCS: 70491; 80053; 81025; 85025; 86308; 86703; 99284; Q9967; A4216

== ENCOUNTER → 2020-12-05 | Outpatient (CLI) | payer MEDICAID, SELFPAY ==
--- NOTE | 2020-12-05 | IMM_PTH ---
PATIENT: KRZYSZTOFDECEMBER SEAN LOC: [facility] U#:[id number] AGE/SX: 35/F ROOM: RE12/05/[address]: Dr. Orestes Cespedes MD : 1985 BED: DIS: 12/05/2020 SPEC #: [id number] RECD: 12/06/20 11:08 STATUS: MARV REQ #: [id number] MARIANNA: 12/05/20 00:[address]: Orestes Cespedes DEPT: IMMUNOHISTOCHEMISTRY RECD BY: Jolene Valdivia ENTERED: 12/06/20 11:09 SP TYPE: IMMUNO OTHR DR: No Primary Care Phys Tissues: Uterine cervix, NOS Procedures: CD30 (add) CD15 (initial) PHYSICIAN & INSTITUTION [place] [id number] SPECIMEN INFORMATION: Tissue Source: Left cervical mass Clinical Info: Left cervical mass Specimen Number: [id number] CPT code: 47772, 99776 METHODOLOGY: Deparaffinized sections of prefer/formalin-fixed tissue or PAP/DQ stained slides are incubated with monoclonal/polyclonal antibodies/oligonucleotide probes. Localization is made via biotin free immunoperoxidase method. Appropriate controls are performed and reacted as expected. Results on target cell population are indicated in the following table: RESULTS: ANTIBODY / CLONE RESULT CD15 (MMA) positive CD30 (Yaya-H2) positive These tests were developed and their performance characteristics determined by [facility]. They may not have been cleared or approved by the U.S. Food and Drug Administration. The FDA has determined that such clearance or approval is not necessary. The above immunohistochemical/dualISH markers are ordered and reviewed by the Pathologist. INTERPRETATION: Left cervical mass, biopsy: Consistent with Hodgkin's lymphoma, nodular sclerosing type. SJ:aly 12/07/2020 Case has been reviewed in consultation with Dr. Whiting who concurs with the above diagnosis. IDC:AM
[2020-12-05 08:43] VITALS: BMI 26.9
--- NOTE | 2020-12-05 09:00 | CER_PTH ---
PATIENT: KRZYSZTOFDECEMBER SEAN LOC: [facility] U#:[id number] AGE/SX: 35/F ROOM: RE12/05/[address]: Dr. Orestes Cespedes MD : 1985 BED: DIS: 12/05/2020 SPEC #: [id number] RECD: 12/05/20 11:07 STATUS: MARV GAURAV #: [id number] MARIANNA: 12/05/20 09:[address]: Orestes Cespedes DEPT: SURGICAL PATHOLOGY RECD BY: Araceli Zambrano ENTERED: 12/05/20 12:14 SP TYPE: CERV OTHR DR: No Primary Care Phys Tissues: Uterine cervix, NOS Procedures: Surgery Specimen Level IV HEADER OPERATION: Biopsy left cervical mass PRE-OP DIAGNOSIS: Left cervical mass TISSUE SUBMITTED: Left cervical mass MICROSCOPIC DIAGNOSIS Left cervical mass, core biopsy: Consistent with involvement by Hodgkin's lymphoma, nodular sclerosing type. See comment. PANCHITO:aly 12/06/2020 COMMENT Immunohistochemistry ([id number]) supports the above diagnosis. Correlation with clinical, radiologic findings and appropriate follow up are necessary. Case has been reviewed in consultation with Dr. Whiting who concurs with the above diagnosis. IDC:AM MICROSCOPIC DESCRIPTION Slides are reviewed. GROSS DESCRIPTION Received in fixative is one container labeled with the patient's name and designated left cervical mass. The specimen consists of multiple elongated fragments of light pink-nixon soft tissue that in aggregate measure 1 x 0.3 x <0.1 cm. The specimen is totally submitted in one cassette. / AM:aly 12/05/20 TC:0 CPT: 81455
== END | disposition home or self-care (01) ==
LOC: LABSPEC 11:13
PROVIDERS: Referring Provider Surgery; Visit Provider Surgery
DX: R22.1 Localized swelling, mass and lump, neck (principal)
CPT/HCPCS: 88305; 88341; 88342

== ENCOUNTER 2020-12-09 01:20 | Emergency (ER) | payer MEDICAID, SELFPAY ==
[2020-12-05 08:43] VITALS: BMI 26.9
[2020-12-09 01:22] VITALS: BP 136/87; PULSE 104; RESP 16; TEMP 36.3; O2SAT 97; BMI 28.1
--- NOTE | 2020-12-09 01:31 | CT_ITS ---
STUDY: CT SOFT TISSUE NECK WITH CONTRAST REASON FOR EXAM: Female, 35 years old. enlarging mass -- please scan through supraclavicular bx site also RADIATION DOSAGE (If Supplied By Facility): CTDIvol = ( 16.00 ) mGy, DLP = ( 435.82 ) mGycm TECHNIQUE: The patient was scanned in a multi-detector CT scanner. High resolution transaxial imaging was performed following intravenous administration of IV 100mL Isovue-300. Sagittal and coronal images were reconstructed. Individualized dose optimization techniques were used for this CT. COMPARISON: None. FINDINGS: Bilateral cervical lymphadenopathy is less well defined on current examination due to timing of contrast bolus, there is however no significant change in size. The largest lymph node right level 4 measures 2.3 x 2.2 cm, left level 4 measures 2.4 x 2 cm, left level 5 is incompletely imaged measuring 4.7 x 3.6 cm. There is anterior supraclavicular left subcutaneous fat stranding. There is no acute contrast extravasation. There is superior mediastinal, right paratracheal and prevascular lymphadenopathy. Normal bilateral parotid glands. Normal bilateral musical performer spaces. Normal bilateral parapharyngeal spaces. Normal bilateral carotid spaces. Normal bilateral sublingual and submandibular glands and spaces. Normal visualized nasopharynx. Normal retropharyngeal space. Normal perivertebral space. Normal visualized bilateral faucial tonsils. The visualized tongue, tongue base and oropharynx are normal. Normal epiglottis, bilateral vallecula and hypopharynx. The pre-epiglottic and paraglottic adipose spaces are normal. Normal visualized bilateral piriform sinuses, aryepiglottic folds, vocal cords, and arytenoid-cricoid articulations. Normal subglottic trachea. Normal bilateral lobes of the thyroid gland. There is no demonstrated pneumothorax. Stable nodular low-attenuation soft tissue right maxillary antrum, minimal mucosal thickening left maxillary antrum. Normal visualized cervical spine. CT/Soft Tissue Neck WITH Contrast IMPRESSION: No expanding hematoma or acute vascular injury detected. Visualized cervical lymphadenopathy and superior mediastinal lymphadenopathy appears stable. There is no demonstrated pneumothorax. Electronically Signed: Humaira Londono MD at 2:50 EDT , Service support ,
--- NOTE | 2020-12-09 01:32 | ED.DCSUM_ITS ---
History of Present Illness Chief Complaint: Wound Informant: Patient Onset: Days Current Severity: Moderate Maximum Severity: Moderate Narrative: Patient presented to the emergency room on November 29 with complaints of swollen nodes in her neck. CT scan revealed multiple enlarged lymph nodes that were concerning. Patient followed up with Dr. Cespedes in the office on 05 December. She had a biopsy at that time with results indicating Hodgkin's lymphoma. Patient states that she presents to the ER this morning because the area that was biopsied seems to be enlarging in size. She states pain has not really changed. Patient states she is scheduled to be seen next week to start chemotherapy. - Past Medical History (1) Asthma Status: Chronic (2) Bipolar 1 disorder Status: Chronic (3) GERD (gastroesophageal reflux disease) Status: Chronic (4) Hypertension Status: Chronic Past Medical History - Allergies and Home Meds Allergies/Adverse Reactions: Allergies ibuprofen Allergy (Verified 12/09/20 01:25) Anaphylaxis NSAIDS (Non-Steroidal Anti-Inflamma Allergy (Verified 12/09/20 01:25) Anaphylaxis Penicillins [PCN] Allergy (Verified 12/09/20 01:25) Anaphylaxis acetaminophen Adverse Reaction (Verified 12/09/20 01:25) Nausea adhesive tape Adverse Reaction (Verified 12/09/20 01:25) Rash Primary Care Physician: Care Physician,No Primary [Primary Care Provider] - Prior records reviewed: Yes Surgical History: no surgical history Lives: Roommate Smoking Status: Current every day smoker Review of Systems General: Reports: Sweats. Denies: Chills, Fever Eyes: Denies: Visual changes - bilaterally Cardiovascular: Denies: Chest pain Respiratory: Denies: Dyspnea, Cough Gastrointestinal: Denies: Abdominal pain, Vomiting, Diarrhea Skin: Reports: Wounds Neurological: Denies: Headache, Weakness, Parasthesia Hematologic: Denies: Easy bruising, Easy bleeding Allergy: Denies: Uticaria Physical Exam Vital Signs/Narrative: Vital Signs Temp Pulse Resp BP Pulse Ox 12/09/20 01:22 97.3 F L 104 H 16 136/87 H 97 Inital Vital Signs reviewed: Yes General: Well nourished, Well developed ENT: - - Multiple firm enlarged lymph nodes along the lateral neck. Left supraclavicular biopsy site is clean with no sign of infection. Neck: Supple Cardiovascular: Regular rate, Regular rhythm Respiratory: No distress, CTA bilaterally Abdomen: Soft, Nontender Extremities: Nontender Skin: Normal color Neurological: Alert, Oriented x3 Psychological: Normal affect Diagnostic/Tx/Re-eval Impressions Soft Tissue Neck CT 12/09/20 01:31 IMPRESSION: No expanding hematoma or acute vascular injury detected. Visualized cervical lymphadenopathy and superior mediastinal lymphadenopathy appears stable. There is no demonstrated pneumothorax. Electronically Signed: Humaira Londono MD at 2:50 EDT , Service support , 12/09/20 01:31 CT Neck [Soft Tissue Neck WITH Contrast] [CT] Stat Laboratory Results 12/09/20 01:50 WBC 12.9 H RBC 4.16 L Hgb 11.4 L Hct 35.8 L MCV 86.1 MCH 27.4 MCHC 31.8 L RDW Std Deviation 43.2 RDW Coeff of Alley 13.8 Plt Count 480 H MPV 8.0 Immature Gran % (Auto) 0.600 Neut % (Auto) 75.1 H Lymph % (Auto) 9.6 L [place] % (Auto) 6.0 Eos % (Auto) 7.8 H Baso % (Auto) 0.9 Absolute Neuts (auto) 9.7 H Absolute Lymphs (auto) 1.24 Nucleated RBC % 0 - Medical Decision Making Hemoglobin is stable from prior labs. CT scan shows stable appearance of the lymph nodes. No evidence of surrounding hematoma. Patient is reassured with these findings. She will follow-up this coming week as scheduled for her oncology visit. ED Disposition - Plan for ED Patient: Disposition: Home or Assisted Living Diagnosis: Lymph nodes enlarged Referrals: Care Physician,No Primary [Primary Care Provider] - Additional Instructions: Follow-up with oncology this week as scheduled.
[2020-12-09 01:59] VITALS: RESP 16
[2020-12-09 02:04] LABS: Absolute Lymphocyte Count 1.24 X10^3/uL (0.83-4.51); Absolute Neutrophil Count 9.7 X10^3/uL (2.0-7.7); Basophil# 0.12 X10^3/uL; Basophil% 0.9 % (0-1); Eosinophils% 7.8 % (0-5); Hematocrit 35.8 % (37-47); Hemoglobin 11.4 g/dL (12.0-15.0); Lymphocyte # 1.24 X10^3/ul (4.0); Lymphocyte % 9.6 % (19-41); Mean Corp Hgb Conc 31.8 g/dL (32-36); Mean Corpuscular Hgb 27.4 pg (27.0-32.0); Mean Corpuscular Volume 86.1 fL (81-99); Monocyte# 0.78 X10^3/uL; NRBC Flagged by Analyzer 0 % (0-5); Neutrophil # 9.68 X10^3/uL (2.7-7.7); Neutrophil % 75.1 % (47-70); Platelet Count 480 K/mm3 (150-450); RBC Distribution Width CV 13.8 % (11.6-14.6); RBC Distribution Width SD 43.2 fl (35.1-43.9); Red Blood Count 4.16 M/mm3 (4.2-5.4); White Blood Count 12.9 K/mm3 (4.4-11.0)
== END 2020-12-09 03:05 | disposition home or self-care (01) ==
PROVIDERS: Emergency Provider Emergency Medicine
DX: R59.0 Localized enlarged lymph nodes (principal); C81.91 Hodgkin lymphoma, unspecified, lymph nodes of head, face, and neck; J45.909 Unspecified asthma, uncomplicated; F17.200 Nicotine dependence, unspecified, uncomplicated
CPT/HCPCS: 70491; 85025; 99283; Q9967; A4216

== ENCOUNTER 2020-12-18 08:22 | Day surgery (SDC) | payer MEDICAID, SELFPAY ==
[2020-12-12 09:10] VITALS: BMI 28.2
[2020-12-18] VITALS (9 sets, daily range): BP systolic 88–109; BP diastolic 59–72; PULSE 57–79; RESP 16–18; TEMP 36.4–36.9; O2SAT 96–100; BMI 28.8
--- NOTE | 2020-12-18 08:00 | HP_ITS ---
Intake Vital Signs 12/12/20 Height 4 ft 8 in 12/12/20 Weight: 126 lb 12/12/20 BMI 28.2 12/12/20 BP 102/69 12/12/20 Blood Pressure Location Rt brachial 12/12/20 Position Sitting 12/12/20 Respiration 18 Intake Visit Reasons: PORT PLACEMENT, SUTURE REMOVAL Chief Complaint: discuss port Caddy/Caddie Supervisor Required: No Is patient in pain?: Yes (left neck) Allergies ibuprofen Allergy (Verified 12/12/20 09:11) Anaphylaxis NSAIDS (Non-Steroidal Anti-Inflamma Allergy (Verified 12/12/20 09:11) Anaphylaxis Penicillins [PCN] Allergy (Verified 12/12/20 09:11) Anaphylaxis acetaminophen Adverse Reaction (Verified 12/12/20 09:11) Nausea adhesive tape Adverse Reaction (Verified 12/12/20 09:11) Rash Medications Albuterol IH (ProAir) [Proair Hfa] 1 puff INHALATION Q4H PRN PRN #1 inhaler 12/08/19 [Rx Confirmed 12/11/20] PFSH Medical History Bipolar 1 disorder (Chronic) Hypertension (Chronic) Asthma (Chronic) GERD (gastroesophageal reflux disease) (Chronic) Arthritis (Acute) Hearing problem of both ears (Acute) Irritable bowel syndrome (Acute) Migraine headache (Acute) Multiple gastric ulcers (Acute) Seizures (Acute) Surgical History H/O hand surgery (Acute) Family History Grandfather Alcoholism Colon cancer Heart disease Mental disorder Seizures CVA (cerebral vascular accident) Ulcer Mother Anxiety History of blood clots Depression Diabetes Hypertension Grandmother Anxiety Asthma Depression Diabetes Hypertension Mental disorder Respiratory disease Sister Anxiety Depression Aunt Anxiety Depression Brother Anxiety Depression Father Diabetes Hypertension CVA (cerebral vascular accident) Social History (Updated 12/12/20 @ 09:[address] Orestes Cespedes MD) Smoking Status: Current every day smoker alcohol intake: never HPI HPI HPI: JOSTIN BLANKENSHIP, is a 35 F who presents to the office today for HPI HPI Surgical H&P: Yes HPI: JOSTIN BLANKENSHIP, is a 35 F who presents to the office today for port placement. The patient had biopsy of left supraclavicular lymph node which came back as a Hodgkin's lymphoma and she requires port for treatment. ROS General General: Yes weight change; no fatigue Cardio Cardiovascular: No murmur, pacemaker, heart disease, atrial fibrillation, high blood pressure, heart attack, heart stent, palpitations, shortness of breat with exertion or chest pain Psych Psychiatric: Yes depression and anxiety Resp Respiratory: No shortness of breath, No sleep apnea, No cough, No COPD, Yes asthma, No emphysema, No wheezing Gastro Gastrointestinal: No abdominal pain, No nausea or vomiting, No diarrhea, No constipation, No blood in stool, Yes acid reflux, No hemorrhoids, Yes ulcers, No gallbladder problem, No black,tarry stools Emigdio Hematologic: No blood thinners Exam Const General: cooperative Orientation: alert, oriented x3 Neck Neck: lymphadenopathy Resp Effort & Inspection: normal respiratory effort Auscultation: clear to auscultation bilaterally Cardio Rate: regular rate Rhythm: regular rhythm Heart Sounds: no murmurs GI Inspection: non-distended Palpation: soft, nontender Assessment & Plan Problems 1. 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 I discussed port placement with her in detail. I discussed the risks including but not limited to bleeding, infection, pneumothorax, line infection or DVT. I believe there is a small window in the right supraclavicular area to perform a right IJ port placement. If this is not possible we will perform a right subclavian port placement. 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 There are no clinical changes since date of exam.
[2020-12-18] MEDS: Lactated Ringers 1,000 ML 100 ML IV (10:28)
[2020-12-18 10:29] LABS: Internal QC Validated? YES +Cl - CLEAR BKGD; Pregnancy, Urine Negative Negative
[2020-12-18] MEDS: Bupiv/Epi 0.25% 30 ML Vial (12:35)
--- NOTE | 2020-12-18 12:49 | PCM.OPRPT ---
Problem List (1) Encounter for adjustment and management of vascular access device Status: Acute (2) Hodgkin lymphoma Status: Acute Qualifiers: Report of Operation Date of Procedure: 12/18/20 Pre-Operative Diagnosis: Hodgkin's lymphoma need for vascular access for chemotherapy Post-Operative Diagnosis: Same Surgery/Procedure Performed:: Ultrasound and fluoroscopy guided right chest port placement utilizing right IJ Description of Procedure: After obtaining informed consent patient was brought back to the operating room MAC anesthesia was induced and the right chest and neck were prepped in normal sterile fashion. Ultrasound was used to evaluate both IJs and the right IJ was selected. Next, using a needle, the right IJ was accessed and a guidewire was passed on into the superior vena cava under fluoroscopy guidance. A small incision was made over the puncture site and the dilator introducer was placed over the guidewire. Next this was capped and the pocket was made for the port. 1% lidocaine with epinephrine was injected in the proposed port site. An incision was made with scalpel. Electrocautery was used to make a pocket under the skin and subcutaneous tissue. Hemostasis was obtained. Next, the catheter was tunneled up to the neck incision site and placed through the introducer. The peel-away introducer was removed and the position of the catheter was confirmed on fluoroscopy. Next, the catheter was trimmed and attached to the port with the locking device. Interrupted 2-0 Vicryl sutures were used to anchor the port to the chest wall and then the port was placed inside the pocket. The pocket was then flushed with saline and the port irrigated with saline. There was good blood return and the port flushed easily. Next, heparin was injected into the port. The skin was closed with subcutaneous interrupted 3-0 Vicryl sutures. A single 3-0 Vicryl sutures placed under the skin at the neck incision site. Steri-Strips were placed as well as op sites. Patient tolerated procedure well, was taken to PACU in stable condition. Chest x-ray will be obtained. Grafts/Implants Used: 8 [place] PowerPort - Admit VTE Documentation VTE Mechan Device Prophylaxis: SCD's
--- NOTE | 2020-12-18 12:50 | DCINST_ITS ---
Discharge Diet: No Restrictions - Pain medication may cause nausea. You should typically eat light foods as you take your pain medication. Discharge Activity: Return to Normal Activity, May Shower - with your bandage in place in 1-2 days after surgery. DO NOT SHOWER WHEN YOUR PORT IS ACCESSED. Lifting Restrictions: none Call your doctor if your incision/area has: Continuous Slow Oozing, Sudden Increased Bleeding, Increased Pain/ Swelling, Increased Redness Call your doctor if you observe: Fever of 101 or Higher Remove Dressing in (days):: 3 - When you remove the bandage, leave the steri- strips intact until they fall off. Allergies/Adverse Reactions: Allergies ibuprofen Allergy (Verified 12/18/20 10:18) Anaphylaxis NSAIDS (Non-Steroidal Anti-Inflamma Allergy (Verified 12/18/20 10:18) Anaphylaxis Penicillins [PCN] Allergy (Verified 12/18/20 10:18) Anaphylaxis acetaminophen Adverse Reaction (Verified 12/18/20 10:18) Nausea Patient reports just the powder type adhesive tape Adverse Reaction (Verified 12/18/20 10:18) Rash Medications to take at Discharge Albuterol IH (ProAir) [Proair Hfa] 1 puff INHALATION Q4H PRN PRN #1 inhaler 12/08/19 Acetaminophen [Tylenol Extra Strength] 500 mg PO Q4H PRN PRN 12/17/20 Calcium Carbonate [Tums] 500 mg PO Q6H PRN PRN 12/17/20 Primary Care Physician: Care Physician,No Primary [Primary Care Provider] - Test Results: Test results from this visit will be discussed in further detail at your follow- up appointment, if applicable. Please Follow Up With: Orestes Cespedes MD When: Please call to schedule 2 week follow up appointment. [phone]
--- NOTE | 2020-12-18 13:00 | RAD_ITS ---
STUDY: X-RAY CHEST REASON FOR EXAM: Female, 35 years old. pacu -- in pacu TECHNIQUE: Single AP portable view of the chest. COMPARISON: Comparison is made with prior examination dated 04/20/2019. FINDINGS: A right-sided Port-A-Cath has been placed. The tip is at the junction of the superior vena cava and right atrium. The lungs are clear and expanded. There is no demonstrated pleural abnormality. Normal size heart. Normal mediastinum and sonido. Normal visualized pulmonary arteries. Normal visualized aortic arch and descending thoracic aorta. Normal visualized thoracic spine. Normal visualized ribs, clavicles, and shoulders. There is no demonstrated abnormality of the visualized soft tissue structures of the upper abdomen. RAD/CXR for Line Placement IMPRESSION: The tip of the right-sided lina catheter is at the junction of the superior vena cava and right atrium. Electronically Signed: Hilario Pagan MD at 13:14 EDT , Service support ,
== END 2020-12-18 14:10 | disposition home or self-care (01) ==
LOC: SDC 08:23 → AC 10:08
PROVIDERS: Anesthesiology; Visit Provider Surgery
PROC: (CPT 36561; principal; 2020-12-18 10:45)
DX: Z45.2 Encounter for adjustment and management of vascular access device (principal); C81.11 Nodular sclerosis Hodgkin lymphoma, lymph nodes of head, face, and neck; Z20.822 Contact with and (suspected) exposure to COVID-19; F31.9 Bipolar disorder, unspecified; K21.9 Gastro-esophageal reflux disease without esophagitis; M19.90 Unspecified osteoarthritis, unspecified site; K58.9 Irritable bowel syndrome, unspecified; J45.909 Unspecified asthma, uncomplicated; Z87.19 Personal history of other diseases of the digestive system; F17.200 Nicotine dependence, unspecified, uncomplicated
CPT/HCPCS: 00532; 36561; 71045; 77001; 81025; 87426; J7120; C1788

== ENCOUNTER → 2020-12-21 07:52 | Outpatient (CLI) | payer MEDICAID, SELFPAY ==
[2020-12-11 10:48] VITALS: BMI 28.3
[2020-12-18 10:21] VITALS: BMI 28.8
--- NOTE | 2020-12-21 08:50 | ECHODONC_ITS ---
Reason For Study: Pre-chemo, Hodgkin's Lymphoma Procedure This was a 2D Doppler, Color Flow transthoracic echocardiogram. Myocardial strain analysis was performed in this exam to aid in the assessment of cardiac function. The exam was of adequate technical quality. Exam performed in department. Left Ventricle Normal LV size. Left ventricular systolic function is normal. The estimated ejection fraction is 65 %. The global longitudinal strain = -19 % (normal). No evidence for diastolic dysfunction. No regional wall motion abnormalities noted. Right Ventricle Normal RV size. Normal systolic function. Atria Normal left atrium. Normal right atrium. No doppler evidence for ASD. Mitral Valve There is no mitral annular calcification. Normal mitral valve. Trivial mitral valve insufficiency. Tricuspid Valve Normal tricuspid valve. Trivial tricuspid valve insufficiency. Aortic Valve Trisinus/trileaflet aortic valve. Normal aortic valve. Pulmonic Valve The pulmonic valve is not well visualized. Great Vessels Normal sized aortic root. Pericardium/Pleural No pericardial effusion. MMode/2D Measurements & Calculations LVIDd: 3.9 cm IVSd: 0.80 cm Ao root diam: 2.6 cm LVIDs: 2.8 cm LVPWd: 0.88 cm RVDd: 3.3 cm FS: 29.8 % LAV(MOD-bp): 29.6 ml LVAd ap4: 26.7 cm2 SV(MOD-sp4): 48.3 ml LAV(MOD-bp) Indexed: 20.1 ml/m2 EDV(MOD-sp4): 73.0 ml LAV(MOD-sp2): 28.2 ml EDV(sp4-el): 73.3 ml LAV(MOD-sp4): 30.4 ml LVAs ap4: 13.9 cm2 ESV(MOD-sp4): 24.8 ml ESV(sp4-el): 24.3 ml EF(MOD-sp4): 66.1 % EF(sp4-el): 66.9 % SV(sp4-el): 49.0 ml LA A4 area: 13.1 cm2 LA dimension(2D): 3.1 cm RA A4 area: 10.5 cm2 Doppler Measurements & Calculations MV E max lion: 97.6 cm/sec Lat Peak E' Lion: 15.5 cm/sec Med Peak E' Lion: 12.4 cm/sec MV A max lion: 75.1 cm/sec E/E' lat: 6.3 E/E' med: 7.9 MV E/A: 1.3 Ao V2 max: 139.0 cm/sec LV V1 max: 126.3 cm/sec PA V2 max: 95.2 cm/sec Ao max P.7 mmHg LV V1 max P.4 mmHg ECHO/ONC Echo Complete Interpretation Summary Left ventricular systolic function is normal. The estimated ejection fraction is 65 %. The global longitudinal strain = -19 % (normal). Trivial mitral valve insufficiency. Trivial tricuspid valve insufficiency. No evidence for diastolic dysfunction. Ordering Physician: Good Flores Referring Physician: Good Flores Performed By: Jackie Machuca RDCS
--- NOTE | 2020-12-21 13:54 | PFTCOMP_ITS ---
COMPLETE PULMONARY FUNCTION TEST INTERPRETATION Brief HPI: Patient is a 35 year old female, currently under the care of Dr. Flores, who presents to [facility] for complete pulmonary function tests secondary to diagnosis of prechemo. Respiratory therapist reports good effort and reproducible results. Interpretation: Forced expiration spirometry shows no large airways obstructive ventilatory defect with an FEV1 of 110% predicted. There is some improvement following bronchodilators, but no significant bronchodilator response by strict ATS criteria. Spirograms are of good quality and plateau normally. The respiratory flow volume loop shows a normal pattern. Lung volumes by body plethysmography show a normal total lung capacity at 3.86 L, 111% predicted. All other lung volumes are within normal limits. Diffusion capacity by carbon monoxide is normal at 96% predicted. The airway resistance is normal. No previous pulmonary function tests were available for review. Impression: These pulmonary function tests are within normal limits
== END ==
PROVIDERS: Referring Provider Internal Medicine Medical Oncology; Visit Provider Internal Medicine Medical Oncology
DX: Z01.818 Encounter for other preprocedural examination (principal); C81.91 Hodgkin lymphoma, unspecified, lymph nodes of head, face, and neck
CPT/HCPCS: 93306; 93356; 94060; 94726; 94729

== ENCOUNTER → 2021-01-14 08:16 | Outpatient (CLI) | payer MEDICAID, SELFPAY ==
[2021-01-03 15:42] VITALS: BMI 29.1
[2021-01-14] VITALS (9 sets, daily range): BP systolic 85–144; BP diastolic 32–96; PULSE 67–85; RESP 14–20; TEMP 36.6; O2SAT 95–100; BMI 29.1
--- NOTE | 2021-01-14 | BMB_PTH ---
PATIENT: KRZYSZTOFDECEMBER SEAN LOC: CT U#:[id number] AGE/SX: 40/F ROOM: RE01/14/[address]: Dr. Good Flores MD : 1985 BED: DIS: SPEC #: [id number] RECD: 01/14/21 11:37 STATUS: MARV REPardeep #: [id number] MARIANNA: 01/14/21 00:[address]: Good Flores DEPT: BONE MARROW RECD BY: Arden Kelly ENTERED: 01/14/21 11:38 SP TYPE: BMB EMILIA DR: No Primary Care Phys Tissues: A - Bone marrow, NOS B - Bone marrow, NOS C - Bone marrow, NOS Procedures: Bone Marrow Aspiration Bone Marrow Core Biopsy Iron Stain Bone Marrow HEADER OPERATION: Bone marrow biopsy and aspiration PRE-OP DIAGNOSIS: Hodgkin?s lymphoma TISSUE SUBMITTED: A - Core, B - Clot, C - Smears, and send outs (flow and cytogenetics) BONE MARROW DIAGNOSIS Right hip bone marrow core, clot and aspirate smears: Normocellular marrow with trilineage hematopoiesis and myeloid hyperplasia. Iron - absent. Negative for involvement by Hodgkin?s lymphoma. Flow cytometry study from [facility] shows no evidence of acute leukemia or increased blasts, no evidence of an abnormal myeloid population, abnormalities associated with myelodysplasia and myeloproliferative neoplasms are absent, no evidence of B-cell lymphoma or atypical T-call population and no evidence of monocytosis. The complete report is viewable in patient?s EMR. Cytogenetic studies are pending at this time. See comment. SJ:aly 01/16/2021 COMMENT The bone marrow core specimen entirely consists of peripheral blood. Please make reference to previous specimen ([id number]) left cervical mass, core biopsy with diagnosis of ?consistent with involvement by Hodgkin?s lymphoma, nodular sclerosing type.? BONE MARROW STUDY Slides are reviewed. CBC DATE: 01/14/21 WBC 13.8k; RBC 4.35; HGB 11.5; HCT 36.7; MCV 84.4; RDW 14.0; PLTS 435,000 SEGS 74.4%; LYMPHS 8.9%; MONOS 6.4%; EOS 8.8%; BASOS 0.8% PERIPHERAL SMEAR: Submitted. RBC: Normocytic and normochromic. WBC: Neutrophilic leukocytosis and mild eosinophilia. The WBC count is compatible to as reported above. PLTS: Adequate. BONE MARROW ASPIRATE DIFFERENTIAL: 200 cell count. Blasts % (normal 0-2): 0 Promyelocytes % (normal 1-5): 0 Myelocytes and metamyelocytes % (normal 17-41): 36 Bands and Segs % (normal 15-32): 44 Eos % (normal 1-6): 5 Basos % (normal 0-1): 0 Monocytes % (normal 0-4): 1 Erythroid Precursors % (normal 17-35): 10 Lymphocytes % (normal 7-13): 4 Plasma Cells % (normal 0-2): 0 ASPIRATE FINDINGS: Site: Right hip Paucispicular, Cellular M/E ratio: 8.5 (Normal 1.5-4.0) Megakaryocytes: Present and normal morphology. Erythropoiesis: Normoblastic. Granulopoiesis: Progressive and unremarkable. Comment: Atypical cells consistent with Gonzalez-Florian cells are not seen. Myeloid hyperplasia is noted. CORE BIOPSY FINDINGS: Site: Right hip Comment: The specimen entirely consists of peripheral blood. Bone marrow core is not identified. ASPIRATE CLOT FINDINGS: Site: Right hip Marrow particles: Numerous Cellularity: 60% M/E ratio: Myeloid hyperplasia is noted. Megakaryocytes: Present and adequate in number. Granulomas: Absent. Lymphoid aggregates: Absent. Atypical infiltrates: Absent. Comment: Changes consistent with Hodgkin?s lymphoma are not seen. SPECIAL STAINS WITH MATCHED CONTROLS: Iron: Absent Reticulin: No significant increase of reticulin fibers is noted. PAS: Highlights myeloid cells and megakaryocytes. BONE MARROW GROSS A - Received is a container labeled with the patient's name and designated right hip. The specimen consists of a small blood clot. The specimen is totally submitted for cell block preparation. B - Received labeled with the patient's name and designated right hip is a specimen that consists of approximately 7 cc of bloody fluid that on filtration yields multiple minute fragments of blood clots measuring in aggregate 3 x 2.5 x 0.3 cm. The specimen is totally submitted in one cassette. C - Also received are 14 unstained and 1 peripheral stained slides. The unstained slides are submitted for appropriate staining. Also received are three green top tubes which are sent to our reference lab for flow and cytogenetics. / SJ:rg 01/14/21 TC:5 CPT: 03696, 62047, 66524 x2, 93697 x3 ADDENDUM ADDENDUM ADDENDUM ADDENDUM ADDENDUM ADDENDUM ADDENDUM 01/22/2021 11:20 ADDENDUM 01/22/2021 11:20 ADDENDUM 01/22/2021 11:20 ADDENDUM 01/22/2021 11:20 ADDENDUM 01/22/2021 11:20 CYTOGENETICS REPORT FROM [facility] INTERPRETATION: A normal female karyotype was observed in twenty metaphases analyzed. Karyotype: 46,XX[20] Please see complete report in e-chart or EMR for further details
--- NOTE | 2021-01-14 08:29 | CT_ITS ---
PROCEDURE: CT GUIDED BONE marrow biopsy of the right posterior iliac bone. DATE: 01/25/2021. INDICATION: Female, 35 years old. Hodgkin''s lymphoma. PHYSICIAN: Hilario Pagan M.D. RADIATION DOSAGE (If Supplied By Facility): CTDIvol = ( 15 ) mGy, DLP = ( 189.5 ) mGycm. Individualized dose authorization technique were utilized. PROCEDURE: The risks, benefits, and alternatives to the procedure were explained to the patient. The specific risk of hemorrhage requiring further treatment or intervention was detailed and accepted. Follow-up instructions were discussed with the patient as well. Written informed consent was obtained. The patient was brought into the CT suite and placed in the prone position. . An appropriate entry site was identified. The overlying skin was prepped and draped in the usual sterile fashion. 1% lidocaine was administered subcutaneously for local anesthesia. Conscious sedation was performed. The patient received 2 mg of VERSED and 75 mcg of FENTANYL intravenously. Conscious sedation was started at 10:54 AM estimated a.m. The patient was independently monitored by the department nurse. Under CT guidance, a bone marrow biopsy and bone marrow aspiration of the posterior right iliac bone were performed utilizing an 11-gauge bone marrow biopsy kit. The specimens were then placed in the appropriate fluid and transported to the laboratory for analysis. Hemostasis was obtained. The patient tolerated the procedure well without immediate complications. CT/Biopsy/Inj or Needle Placement IMPRESSION: Successful CT guided bone marrow biopsy and aspiration of the posterior right iliac bone, as described above. The conscious sedation protocol was followed. Electronically Signed: Hilario Pagan MD at 11:52 EDT , Service support ,
[2021-01-14 09:55] LABS: Absolute Lymphocyte Count 1.23 X10^3/uL (0.83-4.51); Absolute Neutrophil Count 10.3 X10^3/uL (2.0-7.7); Basophil# 0.11 X10^3/uL; Basophil% 0.8 % (0-1); Eosinophil# 1.22 X10^3/uL; Eosinophils% 8.8 % (0-5); Hematocrit 36.7 % (37-47); Hemoglobin 11.5 g/dL (12.0-15.0); Lymphocyte # 1.23 X10^3/ul (0.83-4.51); Lymphocyte % 8.9 % (19-41); Mean Corp Hgb Conc 31.3 g/dL (32-36); Mean Corpuscular Hgb 26.4 pg (27.0-32.0); Mean Corpuscular Volume 84.4 fL (81-99); Mean Platelet Vol. 8.1 fl (6.2-12.0); Monocyte# 0.89 X10^3/uL; Monocyte% 6.4 % (0-10); NRBC Flagged by Analyzer 0 % (0-5); Neutrophil # 10.26 X10^3/uL (2.7-7.7); Neutrophil % 74.4 % (47-70); Platelet Count 435 K/mm3 (150-450); RBC Distribution Width SD 43.5 fl (35.1-43.9); Red Blood Count 4.35 M/mm3 (4.2-5.4); White Blood Count 13.8 K/mm3 (4.4-11.0)
[2021-01-14] MEDS: Midazolam 2 MG/2 ML Syringe IV (10:54)
[2021-01-14] MEDS: fentaNYL 100 MCG/2 ML Ampul IV (10:54)
[2021-01-14] MEDS: 0.9% Saline Lock 10 ML Syringe IV (12:10)
== END ==
PROVIDERS: Referring Provider Internal Medicine Medical Oncology; Visit Provider Internal Medicine Medical Oncology
DX: C81.90 Hodgkin lymphoma, unspecified, unspecified site (principal)
CPT/HCPCS: 38222; 77012; 85025; 88305; 88311; 88313; 99156; J7040; A4216

== ENCOUNTER 2021-06-02 18:38 | Emergency (ER) | payer MEDICAID, SELFPAY ==
[2021-06-02 18:39] VITALS: BP 123/89; PULSE 102; RESP 18; TEMP 37.2; O2SAT 100; BMI 26.5
[2021-06-02 18:45] VITALS: BP 123/89; PULSE 102; RESP 18; TEMP 37.3; O2SAT 100
--- NOTE | 2021-06-02 18:49 | EDS_ITS ---
HPI History of Present Illness Chief Complaint: Eye Problem Detail of Chief Complaint: Pustules on her scalp after shaving her head. Informant: patient Onset/Context/Timing Location: Bilateral Eyes Onset: Days Context: Gradual Onset Timing: Continuous Current Severity: Mild Maximum Severity: Mild Associated Symptoms Associated Symptoms - Eyes: Eyelid swelling; Negative for Burning, Crusting, Drainage, Foreign body sensation, Itching, Matting, Pain, Photophobia and Redness History of injury: No Narrative Narrative: 36-year-old female with bipolar disorder and non-Hodgkin's lymphoma. Her non-Hodgkin's lymphoma was diagnosed in December of this year and she started undergoing chemotherapy. Her last chemotherapy treatment was at the [facility] here at [place] and was in April. She is not received any chemotherapy this month. States that was start losing her hair she shaved her head about 3 weeks ago and about a week or so ago started getting pustules on her scalp. Complaining also swelling about her eyes. Denies any discharge. No trauma. No itching. Prior similar symptoms: No Recent Illness/Hospitalization: No [facility] Medical History (Updated 06/02/21 @ 18:[address] Chai Irwin MD) Arthritis Asthma Bipolar 1 disorder GERD (gastroesophageal reflux disease) Hearing problem of both ears Hodgkin lymphoma Hypertension Irritable bowel syndrome Migraine headache Multiple gastric ulcers Seizures Home Medications albuterol sulfate 1 puff INHALATION Q4H PRN PRN #1 inhaler 12/08/19 [Rx Last Taken Unknown] acetaminophen 500 mg PO Q4H PRN PRN 12/17/20 [History Last Taken Unknown] lidocaine-prilocaine 1 applic TOPICAL ONCE PRN 30 Days #30 g 04/16/21 [Rx Last Taken Unknown] ondansetron 8 mg PO Q8H PRN #30 tab 04/16/21 [Rx Last Taken Unknown] cephalexin 500 mg PO Q6H 10 Days #40 cap 06/02/21 [Rx Last Taken Unknown] Allergy/AdvReac Type Severity Reaction Status Date / Time ibuprofen Allergy Anaphylaxis Verified 06/02/21 18:48 NSAIDS (Non-Steroidal Allergy Anaphylaxis Verified 06/02/21 18:48 Anti-Inflamma Penicillins [PCN] Allergy Anaphylaxis Verified 06/02/21 18:48 acetaminophen AdvReac Nausea Verified 06/02/21 18:48 adhesive tape AdvReac Rash Verified 06/02/21 18:48 Family History Grandfather Alcoholism Colon cancer Heart disease Mental disorder Seizures CVA (cerebral vascular accident) Ulcer Mother Anxiety History of blood clots Depression Diabetes Hypertension Grandmother Anxiety Asthma Depression Diabetes Hypertension Mental disorder Respiratory disease Sister Anxiety Depression Aunt Anxiety Depression Brother Anxiety Depression Father Diabetes Hypertension CVA (cerebral vascular accident) Surgical History H/O hand surgery Social History Smoking Status: Current every day smoker tobacco type: cigarettes alcohol intake: never ROS ROS ED ROS Narrative Denies recent illness. Review of Systems ROS Unobtainable: Denies due to encephalopathy Constitutional Constitutional ED: Denies chills or fever(s) Eyes Eyes: Denies blurry vision, change in vision or diplopia ENT ENT ED: Denies ear pain or sore throat Cardiovascular Cardiovascular: Denies chest pain Respiratory/Chest Respiratory/Chest: Denies cough or dyspnea Gastrointestinal Gastrointestinal: Denies abdominal pain, diarrhea, nausea or vomiting Genitourinary Genitourinary ED: Denies dysuria Musculoskeletal Musculoskeletal: Denies myalgias Integumentary Reports abscess; Denies rash Neurologic Neurologic: Denies headache(s) Psychiatric Psychiatric: Denies depression Endocrine Endocrinology: Denies polyuria Hematologic/Lymphatic Hematologic/Lymphatic: Denies easy bruising Allergic/Immunologic Allergic/Immunologic ED: Denies urticaria EXAM Physical Exam Narrative Exam Narrative: 36-year-old female no acute distress vital signs stable afebrile. She has significant hair loss. There are pustules throughout her scalp. Nothing large enough to need to be drained. There is no cellulitis. There is minimal swelling of her upper lids. Dry Juan David motions are intact. Noninjected. There is no discharge. Neck nontender no lymphadenopathy. Lungs clear to auscultation. Heart regular rhythm no murmur. Abdomen soft nontender. Moving all 4 extremities. Const Vital Signs: 06/02/21 18:39 06/02/21 18:45 Temperature 99 F 99.1 F Temperature Source Temporal Oral Pulse Rate 102 H 102 H Respiratory Rate 18 18 Blood Pressure 123/89 H 123/89 H Blood Pressure Mean 100 100 Pulse Ox 100 100 Oxygen Delivery Method Room Air Positive well nourished and well developed; Negative for obese, cachectic, contractures or unkempt General Appearance ED: well developed and NAD; Negative for unkempt, cachectic or contractures Nutritional Appearance: Negative for cachectic or obese HEENT HEENT Narrative: Multiple areas of folliculitis and small abscesses on her scalp. Nothing needs to be drained. Minimal swelling around both eyes. Eyes are open. Extra motions are intact. The noninjected. atraumatic and tenderness; Negative for trauma Eyes General Eye ED: Yes normal appearance of both eyes Neck no lymphadenopathy, supple and no JVD General: Negative for tenderness Resp normal respiratory effort, no retractions, no use of accessory muscles and clear to auscultation bilaterally Cardio regular rate, regular rhythm, S1 normal heart sound, S2 normal heart sound and no murmurs GI non-tender, non-distended and no masses Auscultation: normoactive bowel sounds Palpation: soft Back/Spine no CVA tenderness General Back: Negative for CVA tenderness Extremity normal to inspection General Extremety ED: Negative for edema or other findings General Extremity: Negative for edema or other findings Neuro oriented x3 and moves all extremities Sensorium / Orientation: alert, oriented to person, oriented to place and oriented to time; Negative for orientation impaired Motor Exam: strength 5/5 throughout Psych Appearance: Negative for unkempt Attitude: No agitated Mood & Affect: Negative for depressed, anxious or tearful Skin No no wounds Skin Narrative: Folliculitis to her scalp with multiple small abscesses. No cellulitis. Rashes: no rashes MDM MDM MDM Narrative Medical decision making narrative: Patient has a scalp folliculitis. She will be started on Keflex 4 times a day for 10 days. Warm compresses. Swelling about her eyes is minimal. Follow-up with her oncologist. Discharge Plan Triage Chief Complaint: Eye Problem ED Provider: Chai Irwin Dx/Rx/DC Orders Clinical Impression: Folliculitis Instructions: ED Abscess Antibiotic Treatment Only Prescriptions: New cephalexin 500 mg capsule 500 mg PO Q6H 10 Days Qty: 40 RF: 0 No Action albuterol sulfate 1 PUFF inhaler 1 puff INHALATION Q4H PRN PRN (Reason: Wheezing) Qty: 1 RF: 0 ondansetron 8 mg tablet,disintegrating 8 mg PO Q8H PRN (Reason: nausea and vomiting) Qty: 30 RF: 3 lidocaine-prilocaine 2.5-2.5 % cream 1 applic topical ONCE PRN (Reason: port access) 30 Days Qty: 30 RF: 2 acetaminophen 500 MG tablet 500 mg PO Q4H PRN PRN (Reason: Pain 1-10 Or Fever) RF: 0 Primary Care Provider: Care Physician,No Primary Referrals: Good Flores MD [NON-STAFF] - As soon as possible Care Physician,No Primary [Primary Care Provider] - Activity Restrictions/Additional Instructions: Warm compresses to your scalp to let those abscesses opened up and drained. The antibiotic Keflex 4 times a day till gone for 10 days. Tylenol and Motrin for pain. Cool compresses about your eyes to decrease the swelling. Call and follow-up with your oncologist as soon as possible. Disposition Disposition: Home, Self Care
--- NOTE | 2021-06-02 18:53 | ED.RN ---
per dr. gutierres, no visual acuity required
[2021-06-02] MEDS: Cephalexin 250 MG Capsule 500 MG PO (18:56)
== END 2021-06-02 19:07 | disposition home or self-care (01) ==
LOC: ED 18:58
PROVIDERS: Emergency Provider Emergency Medicine
DX: L01.02 Bockhart's impetigo (principal); C85.90 Non-Hodgkin lymphoma, unspecified, unspecified site; F17.210 Nicotine dependence, cigarettes, uncomplicated
CPT/HCPCS: 99283

== ENCOUNTER → 2021-06-04 12:47 | Outpatient (CLI) | payer MEDICAID, SELFPAY | PROVIDERS: Referring Provider Nurse Practitioner Family; Visit Provider Nurse Practitioner Family | DX: J34.89 Other specified disorders of nose and nasal sinuses (principal); R05 Cough | CPT/HCPCS: 87633; 87635; C9803; U0005; U0003 ==

== ENCOUNTER 2021-11-16 13:38 | Emergency (ER) | payer MEDICAID, SELFPAY ==
[2021-11-16 13:39] VITALS: BP 135/90; PULSE 91; RESP 16; TEMP 36.7; O2SAT 100; BMI 26.1
--- NOTE | 2021-11-16 13:53 | EDS_ITS ---
HPI History of Present Illness Chief Complaint: Wound Informant: patient Onset/Context/Timing Onset: Days (3 days) Current Severity: Moderate Maximum Severity: Moderate Narrative Narrative: Patient presents secondary to small abscess along the left nares. Patient states she first noted a small zit-like lesion 3 days ago. She did drain some fluid out of it. It has resealed and started to swell again. Patient complains of pain along her left face. No fever or chills. She is not currently on chemotherapy. [facility] Medical History Arthritis Asthma Bipolar 1 disorder Cough GERD (gastroesophageal reflux disease) Hearing problem of both ears Hodgkin lymphoma Hypertension Illicit drug use, continuous Irritable bowel syndrome Migraine headache Multiple gastric ulcers Seizures Sinus drainage Home Medications albuterol sulfate 1 puff INHALATION Q4H PRN PRN #1 inhaler 12/08/19 [Rx Last Taken Unknown] acetaminophen 500 mg PO Q4H PRN PRN 12/17/20 [History Last Taken Unknown] lidocaine-prilocaine 1 applic TOPICAL ONCE PRN 30 Days #30 g 04/16/21 [Rx Last Taken Unknown] ondansetron 8 mg PO Q8H PRN #30 tab 04/16/21 [Rx Last Taken Unknown] cephalexin 500 mg PO Q6H 10 Days #40 cap 06/02/21 [Rx Last Taken Unknown] doxycycline monohydrate 100 mg PO BID #20 cap 11/16/21 [Rx Last Taken Unknown] mupirocin 1 applic TOPICAL DAILY #15 g 11/16/21 [Rx Last Taken Unknown] Allergy/AdvReac Type Severity Reaction Status Date / Time ibuprofen Allergy Anaphylaxis Verified 11/16/21 13:41 NSAIDS (Non-Steroidal Allergy Anaphylaxis Verified 11/16/21 13:41 Anti-Inflamma Penicillins [PCN] Allergy Anaphylaxis Verified 11/16/21 13:41 acetaminophen AdvReac Nausea Verified 11/16/21 13:41 adhesive tape AdvReac Rash Verified 11/16/21 13:41 Family History Grandfather Alcoholism Colon cancer Heart disease Mental disorder Seizures CVA (cerebral vascular accident) Ulcer Mother Anxiety History of blood clots Depression Diabetes Hypertension Grandmother Anxiety Asthma Depression Diabetes Hypertension Mental disorder Respiratory disease Sister Anxiety Depression Aunt Anxiety Depression Brother Anxiety Depression Father Diabetes Hypertension CVA (cerebral vascular accident) Surgical History H/O hand surgery Social History Smoking Status: Current every day smoker tobacco type: cigarettes alcohol intake: never ROS ROS ED Constitutional Constitutional ED: Denies chills or fever(s) Eyes Eyes: Denies blurry vision ENT ENT ED: Reports other Details: Nasal abscess Cardiovascular Cardiovascular: Denies chest pain or palpitations Respiratory/Chest Respiratory/Chest: Denies cough or dyspnea Gastrointestinal Gastrointestinal: Denies abdominal pain Musculoskeletal Musculoskeletal: Denies back pain or neck pain Integumentary Reports abscess Neurologic Neurologic: Denies headache(s) Allergic/Immunologic Allergic/Immunologic ED: Denies urticaria EXAM Physical Exam Const Vital Signs: 11/16/21 13:39 Temperature 98.1 F Temperature Source Temporal Pulse Rate 91 Respiratory Rate 16 Blood Pressure 135/90 H Blood Pressure Mean 105 Pulse Ox 100 Oxygen Delivery Method Room Air Positive well nourished and well developed General Appearance ED: well developed HEENT Reports moist mucous membranes HEENT Narrative: Small cutaneous abscess with scabbed lesion over the medial distal wall of the nasal septum on the left. No significant surrounding cellulitis. No facial edema. Eyes PERRL and EOMs intact bilaterally Neck supple Chest Wall inspection of chest normal and palpation of chest normal Resp normal respiratory effort and clear to auscultation bilaterally Cardio regular rate and regular rhythm GI non-tender Palpation: soft Extremity normal to inspection Neuro oriented x3 Sensorium / Orientation: alert Psych mental status grossly normal [facility] Treatment and Re-Evaluation Narrative: Patient be treated with a course of doxycycline as she does have an allergy listed to penicillins. She will also be given Bactroban ointment to use topically. Discharge Plan Triage Chief Complaint: Wound ED Provider: Catherine Jane Dx/Rx/DC Orders Clinical Impression: Cutaneous abscess Instructions: ED Abscess Antibiotic Treatment Only Prescriptions: New doxycycline monohydrate 100 MG capsule 100 mg PO BID Qty: 20 RF: 0 mupirocin 2 % ointment 1 applic topical DAILY Qty: 15 RF: 0 No Action albuterol sulfate 1 PUFF inhaler 1 puff INHALATION Q4H PRN PRN (Reason: Wheezing) Qty: 1 RF: 0 ondansetron 8 mg tablet,disintegrating 8 mg PO Q8H PRN (Reason: nausea and vomiting) Qty: 30 RF: 3 lidocaine-prilocaine 2.5-2.5 % cream 1 applic topical ONCE PRN (Reason: port access) 30 Days Qty: 30 RF: 2 acetaminophen 500 MG tablet 500 mg PO Q4H PRN PRN (Reason: Pain 1-10 Or Fever) RF: 0 cephalexin 500 mg capsule 500 mg PO Q6H 10 Days Qty: 40 RF: 0 Primary Care Provider: Care Physician,No Primary Referrals: Beth Singh MD [STAFF PHYSICIAN] - 1-2 Weeks Care Physician,No Primary [Primary Care Provider] - Disposition Disposition: Home, Self Care
[2021-11-16] MEDS: Doxycycline 100 MG CAPSULE PO (14:02)
== END 2021-11-16 14:04 | disposition home or self-care (01) ==
LOC: ED 13:58
PROVIDERS: Emergency Provider Emergency Medicine; Visit Provider Emergency Medicine
DX: J34.0 Abscess, furuncle and carbuncle of nose (principal); F17.210 Nicotine dependence, cigarettes, uncomplicated
CPT/HCPCS: 99283

== ENCOUNTER 2023-05-06 16:17 | Emergency (ER) | payer MEDICAID, SELFPAY ==
[2023-05-06 16:18] VITALS: BP 127/78; PULSE 86; RESP 16; TEMP 36.1; O2SAT 100
[2023-05-06 16:19] VITALS: BMI 27.6
--- NOTE | 2023-05-06 16:24 | EDS_ITS ---
HPI History of Present Illness Chief Complaint: Lower Extremity Injury Detail of Chief Complaint: Left foot and ankle injury Informant: patient Narrative Narrative: Patient presents with left foot and ankle injury that occurred yesterday. Patient states that she was walking out of door when her pajama pants got caught on the door causing her to fall and twisting her foot and ankle. She had a hard time bearing weight. Patient denies any other injuries. [facility] Medical History Arthritis Asthma Bipolar 1 disorder Cough GERD (gastroesophageal reflux disease) Hearing problem of both ears Hodgkin lymphoma Hypertension Illicit drug use, continuous Irritable bowel syndrome Migraine headache Multiple gastric ulcers Seizures Sinus drainage Home Medications NK 05/06/23 [History Last Taken Unknown] Allergy/AdvReac Type Severity Reaction Status Date / Time ibuprofen Allergy Anaphylaxis Verified 05/06/23 16:18 NSAIDS (Non-Steroidal Allergy Anaphylaxis Verified 05/06/23 16:18 Anti-Inflamma Penicillins [PCN] Allergy Anaphylaxis Verified 05/06/23 16:18 acetaminophen AdvReac Nausea Verified 05/06/23 16:18 adhesive tape AdvReac Rash Verified 05/06/23 16:18 Family History Grandfather Alcoholism Colon cancer Heart disease Mental disorder Seizures CVA (cerebral vascular accident) Ulcer Mother Anxiety History of blood clots Depression Diabetes Hypertension Grandmother Anxiety Asthma Depression Diabetes Hypertension Mental disorder Respiratory disease Sister Anxiety Depression Aunt Anxiety Depression Brother Anxiety Depression Father Diabetes Hypertension CVA (cerebral vascular accident) Surgical History H/O hand surgery Social History Smoking Status: Light Smoker (<10/day) alcohol intake: never ROS ROS ED Review of Systems ROS Unobtainable: other Constitutional Constitutional ED: Reports lethargy; Denies chills, fever(s), sweats or weight loss Eyes Eyes: Denies blurry vision, change in vision or diplopia ENT ENT ED: Denies rhinorrhea or sore throat Cardiovascular Cardiovascular: Reports chest pain and racing heartbeat; Denies orthopnea Respiratory/Chest Respiratory/Chest: Denies cough, dyspnea, dyspnea on exertion, orthopnea or sputum Gastrointestinal Gastrointestinal: Denies abdominal pain, diarrhea, nausea or vomiting Genitourinary Genitourinary ED: Denies dysuria, hematuria or urinary frequency Musculoskeletal Musculoskeletal: Denies arthralgias, back pain, myalgias or neck pain Integumentary Reports other Details: Left foot and ankle injury/pain ; Denies abscess, Abrasions or rash Neurologic Neurologic: Denies headache(s) or weakness Psychiatric Psychiatric: Denies anxiety, depression or suicidal thoughts Endocrine Endocrinology: Denies polydipsia, polyphagia or polyuria Hematologic/Lymphatic Hematologic/Lymphatic: Denies easy bleeding, easy bruising or lymphadenopathy Allergic/Immunologic Allergic/Immunologic ED: Denies mouth swelling, tongue swelling or urticaria EXAM Physical Exam Const Vital Signs: 05/06/23 16:18 Temperature 96.9 F L Temperature Source Temporal Pulse Rate 86 Respiratory Rate 16 Blood Pressure 127/78 H Blood Pressure Mean 94 Pulse Ox 100 Oxygen Delivery Method Room Air Positive well nourished and well developed General Appearance ED: well developed and NAD HEENT Reports TM's clear and moist mucous membranes normocephalic and atraumatic; Negative for trauma or tenderness Tympanic Membrane ED: Yes TM's clear Eyes PERRL and EOMs intact bilaterally General Eye ED: Negative for pale conjunctiva or scleral icterus Neck no lymphadenopathy, supple and no JVD General: Negative for tenderness Chest Wall inspection of chest normal and palpation of chest normal Chest: Negative for tenderness Resp normal respiratory effort and clear to auscultation bilaterally Effort and Inspection: Negative for respiratory distress or pain with movement Auscultation: Negative for rhonchi, wheezes or diminished lung sounds Cardio regular rate, regular rhythm, S1 normal heart sound, S2 normal heart sound and no murmurs Peripheral Pulses: pulses 2+ throughout GI normal to inspection, nondistended, normoactive bowel sounds, soft to palpation, non-tender, non-distended and no masses Back/Spine no CVA tenderness and no thoracic nor lumbar tenderness Extremity Extremity Narrative: Left foot and ankle-patient has mild soft tissue swelling about the lateral malleolus with tenderness palpation over the lateral malleolus. Patient has tenderness over the base of the fifth metatarsal. No pain at the proximal fibular head. Neurovascularly intact distally. No significant ecchymosis or bruising noted. General Extremety ED: Negative for edema General Extremity: Negative for edema Neuro oriented x3, CN's II-XII intact bilaterally, no sensory deficits noted and gait normal Sensorium / Orientation: awake, alert, oriented to person, oriented to place and oriented to time Motor Exam: strength 5/5 throughout and strength abnormal Psych mental status grossly normal Skin no rashes or lesions noted and no wounds MDM MDM MDM Narrative Medical decision making narrative: Patient presents with injury to her left ankle and foot. X-rays obtained were negative for fracture. She will be given an air splint and crutches. Patient advised to use Tylenol for discomfort. Instructed to ice and elevate the extremity. She is to follow-up with her primary care physician within next 3 to 5 days or I will refer her to PCP on-call for no doc. Radiography Diagnostic Testing: Clinical Impression(s) from Imaging Studies Ankle X-Ray 05/06/23 16:30 IMPRESSION: Normal x-ray examination of the ankle. Electronically Signed: Darshan Mccauley MD at 16:41 EDT , Foot X-Ray 05/06/23 16:30 IMPRESSION: Normal x-ray examination of the foot. Electronically Signed: Darshan Mccauley MD at 16:42 EDT , Three-view x-rays of left ankle obtained interpreted by myself as no evidence of fracture or dislocation. Radiology in agreement. Three-view x-rays of left foot obtained interpreted by myself as no evidence of fracture or dislocations. Radiology in agreement. Discharge Plan Triage Chief Complaint: Lower Extremity Injury ED Provider: New Delgado Dx/Rx/DC Orders Clinical Impression: Left ankle sprain, Sprain of foot, left Instructions: ED Foot Sprain, ED Ankle Sprain (Adult) Prescriptions: No Action NK Primary Care Provider: Care Physician,No Primary Referrals: Rodríguez Orona MD [Med Staff - Clerical Car Checker] - 5-7 Days Care Physician,No Primary [Primary Care Provider] - Disposition Disposition: Home, Self Care Discharge Date/Time: 05/06/23 17:52
--- NOTE | 2023-05-06 16:30 | RAD_ITS ---
STUDY: X-RAY - LEFT ANKLE REASON FOR EXAM: Female, 38 years old. Pain after trauma TECHNIQUE: 3 view(s) of the ankle. COMPARISON: None. FINDINGS: Normal visualized distal tibia and fibula. Normal medial and lateral malleoli. Normal tibiotalar articulation and ankle mortise. Normal visualized talus and calcaneus. The visualized subtalar, talonavicular, calcaneocuboid and tarsal articulations are normal. The soft tissue structures are unremarkable. RAD/Ankle min 3 Views IMPRESSION: Normal x-ray examination of the ankle. Electronically Signed: Darshan Mccauley MD at 16:41 EDT ,
--- NOTE | 2023-05-06 16:30 | RAD_ITS ---
STUDY: X-RAY - LEFT FOOT CLINICAL: Female, 38 years old. Pain after trauma TECHNIQUE: 3 view(s) of the foot. COMPARISON: None. FINDINGS: Normal talus, calcaneus, and tarsal bones. Normal visualized subtalar, talonavicular, calcaneocuboid, tarsal and tarsometatarsal articulations. Normal metatarsi. Normal metatarsophalangeal joint of the great toe. Normal tibial and fibular sesamoid bones. Normal interphalangeal joint of the great toe. Normal phalanges of the great toe. Normal second through fifth metatarsophalangeal joints. Normal interphalangeal joints and phalanges of the lesser toes. The soft tissue structures are unremarkable. RAD/Foot min 3 Views IMPRESSION: Normal x-ray examination of the foot. Electronically Signed: Darshan Mccauley MD at 16:42 EDT ,
== END 2023-05-06 17:52 | disposition home or self-care (01) ==
PROVIDERS: Emergency Provider Emergency Medicine; Visit Provider Emergency Medicine
DX: S93.402A Sprain of unspecified ligament of left ankle, initial encounter (principal); F17.200 Nicotine dependence, unspecified, uncomplicated; W19.XXXA Unspecified fall, initial encounter
CPT/HCPCS: 73610; 73630; 99284; J7030; A4216

== ENCOUNTER 2024-01-21 18:27 | Emergency (ER) | payer MEDICAID, SELFPAY ==
[2024-01-21 18:27] VITALS: BP 124/89; PULSE 79; RESP 16; TEMP 35.8
[2024-01-21 18:29] VITALS: BP 124/89; PULSE 79; RESP 16; TEMP 35.8; BMI 29.5
--- NOTE | 2024-01-21 18:54 | EDS_ITS ---
HPI HPI - Fall History of Present Illness Chief Complaint: Fall Informant: patient Occured/Mechanism Occurred: Days (2) Mechanism/Context: Yes slip Narrative: on wet corey in a tunnel Narrative Narrative: 38-year-old female was on a hike and slipped on a wet surface falling against her left elbow. She is left-hand dominant. She has been having a lot of pain and difficulty moving the elbow as a result. She denies pain or injury anywhere else. No numbness or tingling in her hand. PFSH PFSH Medical History Illicit drug use, continuous Cough Sinus drainage Hodgkin lymphoma Multiple gastric ulcers Seizures Arthritis Hearing problem of both ears Migraine headache Irritable bowel syndrome GERD (gastroesophageal reflux disease) Asthma Hypertension Bipolar 1 disorder Home Medications ?Medication ?Instructions ?Recorded ?Last Taken ?Type NK 05/06/23 Unknown History Allergy/AdvReac Type Severity Reaction Status Date / Time ibuprofen Allergy Anaphylaxis Verified 01/21/24 18:28 NSAIDS (Non-Steroidal Allergy Anaphylaxis Verified 01/21/24 18:28 Anti-Inflamma Penicillins (PCN) Allergy Anaphylaxis Verified 01/21/24 18:28 acetaminophen AdvReac Nausea Verified 01/21/24 18:28 adhesive tape AdvReac Rash Verified 01/21/24 18:28 Family History Grandfather Alcoholism Colon cancer Heart disease Mental disorder Seizures CVA (cerebral vascular accident) Ulcer Mother Anxiety History of blood clots Depression Diabetes Hypertension Grandmother Anxiety Asthma Depression Diabetes Hypertension Mental disorder Respiratory disease Sister Anxiety Depression Aunt Anxiety Depression Brother Anxiety Depression Father Diabetes Hypertension CVA (cerebral vascular accident) Surgical History H/O hand surgery Social History Smoking Status: Light Smoker (<10/day) alcohol intake: never ROS ROS ED Constitutional Constitutional ED: Denies chills or fever(s) Musculoskeletal Musculoskeletal: Reports extremity pain; Denies neck pain Integumentary Denies Abrasions, rash or wounds Neurologic Neurologic: Denies paresthesias or weakness EXAM Physical Exam Const Vital Signs: 01/21/24 18:27 01/21/24 18:29 Temperature 96.4 F L 96.4 F L Temperature Source Temporal Temporal Pulse Rate 79 79 Respiratory Rate 16 16 Blood Pressure 124/89 H 124/89 H Blood Pressure Mean 100 100 Positive well nourished and well developed General Appearance ED: well developed and NAD Neck full ROM and supple Back/Spine normal ROM and normal to inspection Extremity Extremity Narrative: normal appearance L elbow, but tender throughout, including lateral aspect, but painless supination/pronation. barely able to move due to pain; holding in 90 degrees flexion, very limited ROM due to pain. Neuro oriented x3, no focal motor deficits and no sensory deficits noted Sensorium / Orientation: alert Psych mental status grossly normal and thought process normal Skin no wounds Rashes: no rashes MDM MDM MDM Narrative Medical decision making narrative: Three-view x-ray series of the left elbow on my interpretation shows no acute fracture or pathologic fat-pad signs. Radiology was in agreement. Patient is reassured, she is allergic to all NSAIDs and acetaminophen. I do not think she needs narcotics for this. She not asking for pain medication but I offered her a sling and she agrees that she feels like she needs that. We discussed rotator cuff exercises to prevent frozen shoulder, possibility of bruised bone and the potential that this could hurt her for weeks or couple months, but if she does have persistent problems moving it especially, she should follow-up with orthopedics. Radiography Diagnostic Testing: Clinical Impression(s) from Imaging Studies Elbow X-Ray 01/21/24 19:00 IMPRESSION: Normal x-ray examination of the elbow. Electronically Signed: Pankaj Recinos MD at 19:40 EDT , Discharge Plan Triage Chief Complaint: Fall ED Provider: Robbie Rosa Dx/Rx/DC Orders Clinical Impression: Contusion of elbow, left Instructions: Bone Contusion, ED Sling Prescriptions: No Action NK Primary Care Provider: Care Physician,No Primary Referrals: Andrae Caruso MD [Med Staff - Active Staff] - 10-14 Days if not better Care Physician,No Primary [Primary Care Provider] - Print Language: Kosovan Disposition Disposition: Home, Self Care
--- NOTE | 2024-01-21 19:00 | RAD_ITS ---
STUDY: X-RAY - LEFT ELBOW REASON FOR EXAM: Female, 38 years old. injury TECHNIQUE: 3 view(s) of the elbow. COMPARISON: None. FINDINGS: Normal visualized humerus, radius and ulna. Normal radiocapitellar and ulnotrochlear articulations. The soft tissue structures are unremarkable. RAD/Elbow min 3 Views IMPRESSION: Normal x-ray examination of the elbow. Electronically Signed: Pankaj Recinos MD at 19:40 EDT ,
== END 2024-01-21 20:13 | disposition home or self-care (01) ==
PROVIDERS: Emergency Provider Emergency Medicine; Visit Provider Emergency Medicine
DX: S50.02XA Contusion of left elbow, initial encounter (principal); W01.0XXA Fall on same level from slipping, tripping and stumbling without subsequent striking against object, initial encounter; Y93.01 Activity, walking, marching and hiking; Y99.8 Other external cause status; F17.200 Nicotine dependence, unspecified, uncomplicated
CPT/HCPCS: 73080; 99283

== ENCOUNTER 2024-10-14 11:25 | Emergency (ER) | payer MEDICAID, SELFPAY ==
[2024-10-14 11:26] VITALS: BP 127/86; PULSE 86; RESP 16; TEMP 36.6; O2SAT 96; BMI 30.7
[2024-10-14 13:25] VITALS: BP 127/92; PULSE 74; RESP 16; O2SAT 97
--- NOTE | 2024-10-14 13:40 | ED.VIS.GI ---
HPI HPI - GI History of Present Illness Chief Complaint: Nausea/Vomiting Abdominal Pain/Flank Pain Onset: Yesterday Timing: Intermittent Quality: Burning Location: Diffuse Worsened by: Nothing Relieved by: Nothing Nausea/Vomiting/Emesis GI Symptom: Positive for Nausea and Vomiting Quality: Positive for Nonbilious; Negative for Blood streaks, Coffee ground or Hematemesis Diarrhea/Melena/Hematochezia GI Symptom: Negative for Diarrhea, Melena or Hematochezia Associated Symptoms Associated Symptoms: Negative for Dysuria, Frequency or Hematuria LMP: 1 month ago Narrative Narrative: Patient presents with nausea and vomiting that began yesterday. Patient states she is unable to keep anything down. Patient denies any hematemesis or coffee-ground emesis. Patient denies any diarrhea, melena, or hematochezia. Patient states she did have some intermittent abdominal pain. Patient describes it as cramping. Patient states it is diffuse across her abdomen. Patient denies any fevers or chills. Patient denies any dysuria, frequency, or hematuria. Patient states her last menstrual period was approximately 1 month ago. PFSH [facility] Medical History Illicit drug use, continuous Cough Sinus drainage Hodgkin lymphoma Multiple gastric ulcers Seizures Arthritis Hearing problem of both ears Migraine headache Irritable bowel syndrome GERD (gastroesophageal reflux disease) Asthma Hypertension Bipolar 1 disorder Home Medications ?Medication ?Instructions ?Recorded ?Last Taken ?Type albuterol sulfate 90 mcg/actuation 1 - 2 puff inhalation Q4H PRN PRN 10/14/24 Unknown Rx aerosol inhaler (Ventolin HFA) Wheezing ##1 sulfamethoxazole 800 1 tab PO BID #6 TABLETS 10/14/24 Unknown Rx mg-trimethoprim 160 mg tablet Allergy/AdvReac Type Severity Reaction Status Date / Time ibuprofen Allergy Anaphylaxis Verified 10/14/24 11:26 NSAIDS (Non-Steroidal Allergy Anaphylaxis Verified 10/14/24 11:26 Anti-Inflamma Penicillins (PCN) Allergy Anaphylaxis Verified 10/14/24 11:26 acetaminophen AdvReac Nausea Verified 10/14/24 11:26 adhesive tape AdvReac Rash Verified 10/14/24 11:26 Family History Grandfather Alcoholism Colon cancer Heart disease Mental disorder Seizures CVA (cerebral vascular accident) Ulcer Mother Anxiety History of blood clots Depression Diabetes Hypertension Grandmother Anxiety Asthma Depression Diabetes Hypertension Mental disorder Respiratory disease Sister Anxiety Depression Aunt Anxiety Depression Brother Anxiety Depression Father Diabetes Hypertension CVA (cerebral vascular accident) Surgical History H/O hand surgery Social History Smoking Status: Current every day smoker tobacco type: cigarettes alcohol intake: never ROS ROS ED Constitutional Constitutional ED: Denies chills or fever(s) Eyes Eyes: Denies blurry vision or change in vision ENT ENT ED: Denies rhinorrhea or sore throat Cardiovascular Cardiovascular: Denies chest pain or palpitations Respiratory/Chest Respiratory/Chest: Denies cough or dyspnea Gastrointestinal Gastrointestinal: Reports abdominal pain, nausea and vomiting Genitourinary Genitourinary ED: Denies dysuria or hematuria Musculoskeletal Musculoskeletal: Denies back pain or neck pain Integumentary Denies abscess or rash Neurologic Neurologic: Denies headache(s) or weakness Allergic/Immunologic Allergic/Immunologic ED: Denies mouth swelling or urticaria EXAM Physical Exam Const Vital Signs: 10/14/24 11:26 10/14/24 13:25 Temperature 97.8 F Temperature Source Oral Pulse Rate 86 74 Respiratory Rate 16 16 Blood Pressure 127/86 H 127/92 H Blood Pressure Mean 99 103 Pulse Ox 96 97 Oxygen Delivery Method Room Air Room Air Positive well nourished and well developed General Appearance ED: well developed and NAD HEENT Reports moist mucous membranes Neck supple and no JVD Resp normal respiratory effort and clear to auscultation bilaterally Cardio regular rate and regular rhythm GI non-tender and non-distended Palpation: soft Extremity full ROM General Extremety ED: Negative for edema or tenderness General Extremity: Negative for edema Neuro CN's II-XII intact bilaterally, moves all extremities and no sensory deficits noted Sensorium / Orientation: alert Motor Exam: strength 5/5 throughout Psych mental status grossly normal MDM MDM MDM Narrative Medical decision making narrative: Differential diagnosis viral illness, dehydration, electrolyte abnormality, urinary tract infection, and gastroenteritis. CBC will be obtained to assess for leukocytosis or anemia. Basic metabolic profile will be obtained to assess for electrolyte abnormality renal function. Urinalysis will be obtained to assess for urinary tract infection and hematuria. Lab Data Attestation: I reviewed the patient's lab results. Lab results narrative: CBC was reviewed. Hemoglobin was 10.8 and hematocrit is 34.6. Basic metabolic profile was reviewed and was within normal limits. Urinalysis was reviewed. Leukocyte esterase was 100. There are 25-50 white blood cells and 1+ bacteria. There are 10-25 epithelial cells. Labs: Laboratory Results - last 24 hr 10/14/24 10/14/24 13:25 13:30 WBC 8.1 RBC 4.27 Hgb 10.8 L Hct 34.6 L MCV 81.0 MCH 25.3 L MCHC 31.2 L RDW Std Deviation 43.1 RDW Coeff of Alley 14.6 Plt Count 445 MPV 8.9 Immature Gran % (Auto) 0.200 Neut % (Auto) 72.4 H Lymph % (Auto) 15.6 L [place] % (Auto) 8.2 Eos % (Auto) 2.9 Baso % (Auto) 0.7 Absolute Neuts (auto) 5.9 Absolute Lymphs (auto) 1.27 Nucleated RBC % 0 Sodium 137 Potassium 3.5 Chloride 103 Carbon Dioxide 26.0 Anion Gap 8 BUN 8 Creatinine 0.59 Estim Creat Clear Calc 107.24 Est GFR (MDRD) Af Amer 145 Est GFR (MDRD) Non-Af 120 BUN/Creatinine Ratio 13.5 Glucose 99 Calcium 8.8 Urine Color Yellow Urine Clarity Clear Urine pH 7.0 Ur Specific Adams 1.010 Urine Protein 30 H Urine Glucose (UA) Normal Urine Ketones 15 H Urine Occult Blood 10 H Urine Nitrite Negative Urine Bilirubin Negative Urine Urobilinogen 1 H Ur Leukocyte Esterase 100 H Urine RBC 0-5 SEEN Urine WBC 25-50 SEEN Ur Squamous Epith Cells 10-25 SEEN Urine Bacteria 1+ Urine Mucus 1+ Treatment and Re-Evaluation :: Smoking cessation was discussed. Patient was given IV fluids and Zofran. Patient was advised of her findings. Patient was given a dose of Bactrim here. Patient was given a prescription for Bactrim. Patient was instructed to follow-up with her primary care physician in 5 to 7 days. Patient was instructed to start with a liquid diet and advance as tolerated. Patient was instructed to return if worse in any way. Patient understood and was agreeable with the plan. All questions were answered. Discharge Plan Triage Chief Complaint: Nausea/Vomiting ED Provider: Rodríguez Benoit Dx/Rx/DC Orders Clinical Impression: Nausea and vomiting, Cystitis Instructions: ED Cystitis Female Adult, ED Vomiting (Adult) Prescriptions: New sulfamethoxazole-trimethoprim 800-160 mg tablet 1 tab PO BID Qty: 6 0RF albuterol sulfate [Ventolin HFA] 90 mcg/actuation HFA aerosol inhaler 1 - 2 puff inhalation Q4H PRN PRN (Reason: Wheezing) Qty: 1 0RF Primary Care Provider: Care Physician,No Primary Referrals: Care Physician,No Primary [Primary Care Provider] - Doctor,Your [Non-Staff] - 5-7 Days Print Language: Lao Disposition Disposition: Home, Self Care
[2024-10-14] MEDS: 0.9% Normal Saline (1000mL) 1,000 ML 1000 ML IV (13:44)
[2024-10-14] MEDS: Ondansetron 4 MG/2 ML Vial IV (13:44)
[2024-10-14 13:59] LABS: Anion Gap 8 (5-15); BUN 8 mg/dL (7-18); BUN/Creat Ratio 13.5 RATIO (10-20); Calcium,Total 8.8 mg/dL (8.5-10.1); Chloride 103 mmol/L (98-107); Creatinine, Serum 0.59 mg/dL (0.55-1.02); EST Glomerular Filtration Rate 120 mL/min (>60); Est Glom Filt Rate - Afr Amer 145 mL/min (>60); Estimated Creatinine Clearance 107.24 ml/min; Glucose 99 mg/dL (74-106); Potassium 3.5 mmol/L (3.5-5.1); Sodium Level 137 mmol/L (136-145)
[2024-10-14 14:09] LABS: Absolute Lymphocyte Count 1.27 X10^3/uL (0.83-4.51); Absolute Neutrophil Count 5.9 X10^3/uL (2.0-7.7); Basophil# 0.06 X10^3/uL; Basophil% 0.7 % (0-1); Eosinophil# 0.24 X10^3/uL; Eosinophils% 2.9 % (0-5); Hematocrit 34.6 % (37-47); Hemoglobin 10.8 g/dL (12.0-15.0); Lymphocyte # 1.27 X10^3/ul (0.83-4.51); Lymphocyte % 15.6 % (19-41); Mean Corp Hgb Conc 31.2 g/dL (32-36); Mean Corpuscular Hgb 25.3 pg (27.0-32.0); Mean Platelet Vol. 8.9 fl (6.2-12.0); Monocyte# 0.67 X10^3/uL; Monocyte% 8.2 % (0-10); NRBC Flagged by Analyzer 0 % (0-5); Neutrophil # 5.88 X10^3/uL (2.7-7.7); Neutrophil % 72.4 % (47-70); Platelet Count 445 K/mm3 (150-450); RBC Distribution Width CV 14.6 % (11.6-14.6); RBC Distribution Width SD 43.1 fl (35.1-43.9); Red Blood Count 4.27 M/mm3 (4.2-5.4); White Blood Count 8.1 K/mm3 (4.4-11.0)
[2024-10-14 14:09] LABS: Color, Urine Yellow (Yellow); Glucose, Dipstick Normal (Normal); Ketone-Dipstick 15 mg/dl (Negative); Leukocyte Esterase-Dipstick 100 /ul (Negative); Nitrite-Dipstick Negative (Negative); Occult Blood-Urine 10 /ul (Negative); Protein-Dipstick 30 mg/dl (Negative); Urine Bilirubin Dipstick Negative (Negative); Urine Clarity Clear (Clear); Urine Urobilinogen 1 mg/dl (Normal)
[2024-10-14 14:22] LABS: White Blood Cells 25-50 SEEN /hpf (0-5)
[2024-10-14 14:30] LABS: Bacteria 1+ /hpf (None Seen); Mucous, Urine 1+ /hpf (<or=2+)
[2024-10-14 14:31] LABS: Red Blood Cells-Urine 0-5 SEEN /hpf (0-5); Squamous Epithelial Cells - UA 10-25 SEEN /hpf (5-10)
[2024-10-14 15:00] VITALS: BP 128/74; PULSE 78; RESP 16; O2SAT 98
[2024-10-14] MEDS: Smz/Tmp Ds Tablet 1 TABLET PO (15:09)
[2024-10-14 15:12] VITALS: BP 167/78; PULSE 74; RESP 16; TEMP 36.6; O2SAT 99
== END 2024-10-14 15:13 | disposition home or self-care (01) ==
PROVIDERS: Emergency Provider Emergency Medicine; Visit Provider Emergency Medicine
DX: N30.90 Cystitis, unspecified without hematuria (principal); F31.9 Bipolar disorder, unspecified; R11.2 Nausea with vomiting, unspecified; F17.210 Nicotine dependence, cigarettes, uncomplicated
CPT/HCPCS: 80048; 81001; 85025; 87086; 87088; 96361; 96374; 96376; 99283; A4216; J2405

== ENCOUNTER → 2025-08-21 | Outpatient (CLI) | payer MEDICAID, SELFPAY ==
[2025-08-25 14:45] LABS: Chlamydia By Nucleic Acid AMP Negative; Gonococcus By Nucleic Acid AMP Negative; HPV HC, High Risk Negative
== END | disposition home or self-care (01) ==
LOC: LABSPEC 15:34
PROVIDERS: Visit Provider Family Medicine
DX: Z12.4 Encounter for screening for malignant neoplasm of cervix (principal)
CPT/HCPCS: 87491; 87591; 87623; 87624; 88175; G0145